=== PATIENT | male | born 1960 | race African-American/Black ===

== ENCOUNTER 2017-01-04 16:39 | Inpatient (IN) | payer OTHER ==
[2017-01-04 17:48] VITALS: BMI 24.3
--- NOTE | 2017-01-04 18:52 | HP ---
CIWA Score - CIWA Score Nausea/Vomitin-Mild Nausea/No Vomiting Muscle Tremors: 4-Moderate,w/Arms Extend Anxiety: 4-Mod. Anxious/Guarded Agitation: 4-Moderately Restless Paroxysmal Sweats: 1-Minimal Palms Moist Orientation: 0-Oriented Tacttile Disturbances: 0-None Auditory Disturbances: 0-None Visual Disturbances: 0-None Headache: 0-None Present CIWA-Ar Total Score: 14 Admission ROS BHS - HPI Chief Complaint: withdrawal sx Allergies/Adverse Reactions: Allergies Allergy/AdvReac Type Severity Reaction Status Date / Time No Known Allergies Allergy Verified 01/04/17 18:59 History of Present Illness: 56 years old male with long history of alcohol cocaine nicotine dependence has chronic lower back pain ambulating with cane and depression is admitted to detox Exam Limitations: No Limitations - Ebola screening Have you traveled outside of the country in the last 21 days: No Have you had contact with anyone from an Ebola affected area: No Have you been sick,other than usual withdrawal symptoms: No Do you have a fever: No - Review of Systems Constitutional: Changes in sleep, Weight Stable EENT: reports: Dental Problems (multiple teeth missing) Respiratory: reports: No Symptoms reported Cardiac: reports: No Symptoms Reported GI: reports: Nausea, Poor Fluid Intake, Abdominal cramping : reports: No Symptoms Reported Musculoskeletal: reports: Muscle Weakness (left knee) Integumentary: reports: No Symptoms Reported Neuro: reports: Tremors Endocrine: reports: No Symptoms Reported Hematology: reports: No Symptoms Reported Psychiatric: reports: Judgement Intact, Orientated x3, Anxious, Depressed Other Systems: Reviewed and Negative Patient History - Patient Medical History Hx Anemia: No Hx Asthma: No Hx Chronic Obstructive Pulmonary Disease (COPD): No Hx Cancer: No Hx Cardiac Disorders: No Hx Congestive Heart Failure: No Hx Hypertension: No Hx Hypercholesterolemia: No Hx Pacemaker: No HX Cerebrovascular Accident: No Hx Seizures: No Hx Dementia: No Hx Diabetes: No Hx Gastrointestinal Disorders: No Hx Liver Disease: No Hx Genitourinary Disorders: No Hx Sexually Transmitted Disorders: No Hx Renal Disease (ESRD): No Hx Thyroid Disease: No Hx Human Immunodeficiency Virus (HIV): No Hx Hepatitis C: No Hx Depression: Yes (NO TXMENT) Hx Suicide Attempt: No Hx Bipolar Disorder: No Hx Schizophrenia: No Other Medical History: chronic lower back pain - Patient Surgical History Past Surgical History: Yes Hx Neurologic Surgery: No Hx Cataract Extraction: No Hx Cardiac Surgery: No Hx Lung Surgery: No Hx Breast Surgery: No Hx Breast Biopsy: No Hx Abdominal Surgery: No Hx Appendectomy: No Hx Cholecystectomy: No Hx Genitourinary Surgery: No Hx Orthopedic Surgery: Yes (ORTHOSCOPIC SURGERY ON LEFT KNEE IN 09/2014) Anesthesia Reaction: No - PPD History Previous Implant?: Yes Documented Results: Negative w/proof Implanted On Prior [facility] Admission?: Yes Date: 07/03/15 Results: 0MM PPD to be Administered?: Yes - Smoking Cessation Smoking history: Current every day smoker Have you smoked in the past 12 months: Yes Aproximately how many cigarettes per day: 15 Cigars Per Day: 0 Hx Chewing Tobacco Use: No Initiated information on smoking cessation: Yes 'Breaking Loose' booklet given: 01/04/17 - Substance & Tx. History Hx Alcohol Use: Yes Hx Substance Use: Yes Substance Use Type: Alcohol, Cocaine Hx Substance Use Treatment: Yes (12/22-12/25/16 [facility] - Substances Abused Alcohol Route: Oral Frequency: Daily Amount used: fifth volka Age of first use: 21 Date of Last Use: 01/04/17 Family Disease History - Family Disease History Family Disease History: Other: Father (ESTRANGED) Admission Physical Exam S - Vital Signs Vital Signs: Vital Signs - 24 hr 01/04/17 17:45 Temperature 96.9 F L Pulse Rate 91 H Respiratory 18 Rate Blood Pressure 118/69 - Physical General Appearance: Yes: Nourished, Appropriately Dressed, Alcohol on Breath, Tremorous, Irritable, Sweating, Anxious HEENTM: Yes: Hearing grossly Normal, Normal ENT Inspection, Normocephalic, Normal Voice Respiratory: Yes: Chest Non-Tender, Lungs Clear, Normal Breath Sounds, No Respiratory Distress, No Accessory Muscle Use Neck: Yes: Supple, Trachea in good position Breast: Yes: Breasts Symetrical Cardiology: Yes: Regular Rhythm, S1, S2, Tachycardia Abdominal: Yes: Non Tender, Soft Genitourinary: Yes: Within Normal Limits Musculoskeletal: Yes: Gait Steady (cane), Back pain, Muscle Pain, Muscle weakness (left knee) Extremities: Yes: Non-Tender, Tremors Neurological: Yes: Fully Oriented, Alert, Motor Strength 5/5, Normal Response, Depressed Affect Integumentary: Yes: Warm Lymphatic: Yes: Within Normal Limits - Diagnostic (1) Alcohol dependence with uncomplicated withdrawal Current Visit: Yes Status: Acute (2) Anxiety and depression Current Visit: Yes Status: Suspected (3) Chronic low back pain Current Visit: Yes Status: Chronic Qualifiers: Back pain laterality: unspecified Sciatica presence: with sciatica Sciatica laterality: sciatica of left side Qualified Code(s): M54.42 - Lumbago with sciatica, left side; G89.29 - Other chronic pain (4) Nicotine dependence Current Visit: Yes Status: Acute Qualifiers: Nicotine product type: cigarettes Substance use status: in withdrawal Qualified Code(s): F17.213 - Nicotine dependence, cigarettes, with withdrawal (5) Cocaine dependence, uncomplicated Current Visit: Yes Status: Chronic Cleared for Admission [facility] - Detox or Rehab [facility] Level of Care: Medically Managed Detox Regimen/Protocol: Librium [facility] Breath Alcohol Content Breath Alcohol Content: 0.28 Urine Drug Screen - Results Drug Screen Negative: No Urine Drug Screen Results: TRISTIN-Cocaine
[2017-01-04] MEDS ORDERED: chlordiazePOXIDE HCL 25 MG CAPSULE PO PRN (18:59)
[2017-01-04] MEDS ORDERED: P-EPHED 60MG/TRIPROLIDI 2.5MG TABLET PO PRN (18:59)
[2017-01-04] MEDS ORDERED: MAGNESIUM HYDROX 2400MG/30ML ORAL SUSPENSION 30 ML CUP PO PRN (18:59)
[2017-01-04] MEDS ORDERED: MAGNESIUM CITRATE 300 ML BOTTLE PO PRN (18:59)
[2017-01-04] MEDS ORDERED: LOPERAMIDE HCL 2 MG CAPSULE PO PRN (18:59)
[2017-01-04] MEDS ORDERED: guaiFENesin/D-METHORPHAN HB 10 ML UNIT-DOSE CUPS PO PRN (18:59)
[2017-01-04] MEDS ORDERED: MAG HYDROX/AL HYDROX/SIMETH 30 ML UNIT-DOSE CUP PO PRN (18:59)
[2017-01-04] MEDS ORDERED: NICOTINE POLACRILEX 4 MG GUM BUC PRN (18:59)
[2017-01-04] MEDS ORDERED: IBUPROFEN 400 MG TABLET (FP) PO PRN (18:59)
[2017-01-04] MEDS ORDERED: hydrOXYzine PAMOATE 50 MG CAPSULE (FP) PO PRN (18:59)
[2017-01-04] MEDS ORDERED: ACETAMINOPHEN 325 MG TABLET (FP) PO PRN (18:59)
[2017-01-04] MEDS ORDERED: MENTHOL/PHENOL 1 EACH UD MM PRN (18:59)
[2017-01-04] MEDS ORDERED: chlordiazePOXIDE HCL 25 MG CAPSULE PO ONE (18:59)
[2017-01-04] MEDS: CYCLOBENZAPRINE HCL 10 MG TABLET (FP) PO SCH (22:08)
[2017-01-04] MEDS: THIAMINE HCL 100 MG TABLET (FP) PO SCH (22:08)
[2017-01-04] MEDS: diphenhydrAMINE HCL 50 MG CAPSULE PO PRN (22:10)
[2017-01-04] MEDS: IBUPROFEN 600 MG TABLET (FP) PO PRN (22:11)
[2017-01-04] MEDS: chlordiazePOXIDE HCL 25 MG CAPSULE PO SCH (22:13)
[2017-01-04 23:15] LABS: URINE APPEARANCE CLEAR; URINE BILIRUBIN NEGATIVE (NEGATIVE); URINE BLOOD NEGATIVE (NEGATIVE); URINE COLOR YELLOW; URINE GLUCOSE (UA) NEGATIVE (NEGATIVE); URINE KETONE NEGATIVE (NEGATIVE); URINE LEUK ESTERASE NEGATIVE (NEGATIVE); URINE NITRITE NEGATIVE (NEGATIVE); URINE PROTEIN NEGATIVE (NEGATIVE); URINE UROBILINOGEN NEGATIVE mg/dL (0.2-1.0)
[2017-01-05] MEDS: CYCLOBENZAPRINE HCL 10 MG TABLET (FP) PO SCH (05:32)
[2017-01-05] MEDS: chlordiazePOXIDE HCL 25 MG CAPSULE PO SCH ×4 (05:32→22:27)
--- NOTE | 2017-01-05 08:53 | CONSULT ---
[facility] Psychiatric Consult - Data Date of interview: 01/05/17 Admission source: [facility] Identifying data: This is 56 years opld male with no psychiatric hospitalization histopry intoxicated with: Alcogho, Cocaine and Nicotine Substance Abuse History: - Smoking Cessation. Smoking history: Current every day smoker. Have you smoked in the past 12 months: Yes. Aproximately how many cigarettes per day: 15. Cigars Per Day: 0. Hx Chewing Tobacco Use: No. Initiated information on smoking cessation: Yes. 'Breaking Loose' booklet given : 01/04/17. - Substance & Tx. History. Hx Alcohol Use: Yes. Hx Substance Use : Yes. Substance Use Type: Alcohol, Cocaine. Hx Substance Use Treatment: Yes ( 12/22-12/25/16 [facility]). - Substances Abused. Alcohol. Route: Oral. Frequency: Daily. Amount used: fifth volka. Age of first use: 21. Date of Last Use: 01/04/17 Medical History: LBP, DJD Psychiatric History: Patient reports history of Impulse control disorder, anxiety, , reports taking prior tadmission: Flexeril 10mg po tid Physical/Sexual Abuse/Trauma History: Denies Additional Comment: Flexeril 10mg po tid Mental Status Exam - Mental Status Exam Alert and Oriented to: Person Cognitive Function: Fair Patient Appearance: Unkempt Mood: Sad, Euthymic Patient Behavior: Cooperative Speech Pattern: Delayed Voice Loudness: Mildly Loud Thought Process: Goal Oriented Thought Disorder: Being Controlled Hallucinations: Denies Suicidal Ideation: Denies Homicidal Ideation: Denies Insight/Judgement: Fair Sleep: Difficulty falling asleep Appetite: Weight gain Muscle strength/Tone: Normal Gait/Station: Shuffling Additional Comments: Flexeril 10mg po tid Psychiatric Findings - Problem List (Benge 1, 2,3) (1) Alcohol dependence with uncomplicated withdrawal Current Visit: Yes Status: Acute (2) Nicotine dependence Current Visit: Yes Status: Acute Qualifiers: Nicotine product type: cigarettes Substance use status: in withdrawal Qualified Code(s): F17.213 - Nicotine dependence, cigarettes, with withdrawal (3) Cocaine dependence, uncomplicated Current Visit: Yes Status: Chronic (4) Anxiety and depression Current Visit: Yes Status: Suspected (5) Cannabis dependence Current Visit: No Status: Acute (6) Cocaine dependence Current Visit: No Status: Acute Qualifiers: Substance use status: uncomplicated Qualified Code(s): F14.20 - Cocaine dependence, uncomplicated (7) Impulse control disorder Current Visit: No Status: Acute (8) Antisocial personality disorder Current Visit: No Status: Suspected (9) Substance induced mood disorder Current Visit: No Status: Suspected - Initial Treatment Plan Initial Treatment Plan: Flexeril 10mg po tid
--- NOTE | 2017-01-05 09:38 | PN ---
S CIWA - CIWA Score Nausea/Vomitin-No Nausea/No Vomiting Muscle Tremors: 4-Moderate,w/Arms Extend Anxiety: 3 Agitation: 3 Paroxysmal Sweats: 3 Orientation: 0-Oriented Tacttile Disturbances: 0-None Auditory Disturbances: 0-None Visual Disturbances: 0-None Headache: 0-None Present CIWA-Ar Total Score: 13 S Progress Note (SOAP) Subjective: chronic back pain sweats tired interrupted sleep Objective: 01/05/17 09:37 Vital Signs Temperature 96.7 F L 01/05/17 05:56 Pulse Rate 72 01/05/17 05:56 Respiratory Rate 16 01/05/17 05:56 Blood Pressure 115/66 01/05/17 05:56 O2 Sat by Pulse Oximetry (%) Laboratory Tests 01/04/17 22:00 Urine Color Yellow Urine Appearance Clear Urine pH 6.0 Ur Specific [place] 1.020 Urine Protein Negative Urine Glucose (UA) Negative Urine Ketones Negative Urine Blood Negative Urine Nitrite Negative Urine Bilirubin Negative Urine Urobilinogen Negative Ur Leukocyte Esterase Negative rest of labs pending awake/alert ambulating no acute distress Assessment: 01/05/17 09:37 withdrawal sx Plan: continue detox increase fluids labs pending lidocaine patch
[2017-01-05 09:50] LABS: MCH 28.8 pg (25.7-33.7); MCHC 33.2 g/dl (32.0-35.9); MEAN CELL VOLUME 86.8 fl (80-96); MEAN PLT VOLUME 7.1 fl (7.5-11.1); PLATELET COUNT 328 K/MM3 (134-434); RDW 13.8 % (11.9-15.9); WHITE BLOOD COUNT 6.1 K/mm3 (4.0-10.0)
[2017-01-05] MEDS: LIDOCAINE 5% TOPICAL PATCH TP SCH (10:11)
[2017-01-05] MEDS: PRENATAL VITAMINS W/ FOLIC ACID TABLET (FP) PO SCH (10:12)
[2017-01-05] MEDS: NICOTINE 21 MG/24 HOURS TOPICAL PATCH TD SCH (10:12)
[2017-01-05 10:44] LABS: ALBUMIN 3.3 g/dl (3.4-5.0); ALK PHOS 108 U/L (45-117); ANION GAP 7 (8-16); BILIRUBIN,TOTAL 0.3 mg/dL (0.2-1.0); CALCIUM 8.8 mg/dL (8.5-10.1); CO2 30 mmol/L (21-32); CREATININE 1.1 mg/dL (0.7-1.3); GLUCOSE,RANDOM 134 mg/dL (74-106); SGOT/AST 8 U/L (15-37); SGPT/ALT 17 U/L (12-78); TOT PROT 6.8 g/dl (6.4-8.2)
--- NOTE | 2017-01-05 10:46 | EKG ---
Test Reason : Blood Pressure : / mmHG Vent. Rate : 097 BPM Atrial Rate : 097 BPM P-R Int : 150 ms QRS Dur : 084 ms QT Int : 318 ms P-R-T Axes : 074 036 062 degrees QTc Int : 403 ms NORMAL SINUS RHYTHM NONSPECIFIC T WAVE ABNORMALITY ABNORMAL ECG NO PREVIOUS ECGS AVAILABLE Confirmed by ROYAL SIMON MD ([id number]) on 01/05/2017 10:46:20 AM Referred By: Confirmed By:ROYAL SIMON MD
[2017-01-05] MEDS: CYCLOBENZAPRINE HCL 10 MG TABLET (FP) PO PRN (22:26)
[2017-01-05] MEDS: THIAMINE HCL 100 MG TABLET (FP) PO SCH (22:26)
[2017-01-05] MEDS: diphenhydrAMINE HCL 50 MG CAPSULE PO PRN (22:27)
[2017-01-05] MEDS: IBUPROFEN 600 MG TABLET (FP) PO PRN (22:27)
[2017-01-05] MEDS: LIDOCAINE PATCH REMOVAL MC SCH (22:29)
[2017-01-06] MEDS: chlordiazePOXIDE HCL 25 MG CAPSULE PO SCH ×3 (05:56→17:23)
[2017-01-06] MEDS: PRENATAL VITAMINS W/ FOLIC ACID TABLET (FP) PO SCH (10:15)
[2017-01-06] MEDS: NICOTINE 21 MG/24 HOURS TOPICAL PATCH TD SCH (10:15)
[2017-01-06] MEDS: LIDOCAINE 5% TOPICAL PATCH TP SCH (10:16)
--- NOTE | 2017-01-06 11:17 | PN ---
BHS COWS - Scale Resting Pulse: 0= [place] 80 or Below Sweatin= Chills/Flushing Restless Observation: 1= Difficult to Sit Still Pupil Size: 0= Normal to Room Light Bone or Joint Aches: 2= Severe Diffuse Aches Runny Nose/ Eye Tearin= Runny Nose/Eyes GI Upset > 30mins: 1= Stomach Cramp Tremor Observation of Outstretched Hands: 2= Slight Tremor Visible Yawning Observation: 2= >3x During Session Anxiety or Irritability: 1=Feels Anxious/Irritable Goose Flesh Skin: 0=Smooth Skin COWS Score: 12 S Progress Note (SOAP) Subjective: sweats shakes interrupted sleep tired Objective: 01/06/17 11:16 Vital Signs Temperature 96.8 F L 01/06/17 10:11 Pulse Rate 78 01/06/17 10:11 Respiratory Rate 18 01/06/17 10:11 Blood Pressure 130/89 01/06/17 10:11 O2 Sat by Pulse Oximetry (%) Laboratory Tests 01/04/17 01/05/17 01/05/17 22:00 07:00 07:00 WBC 6.1 RBC 4.46 Hgb 12.9 Hct 38.7 MCV 86.8 MCH 28.8 MCHC 33.2 RDW 13.8 Plt Count 328 MPV 7.1 L D Sodium 140 Potassium 3.9 Chloride 103 Carbon Dioxide 30 Anion Gap 7 L BUN 21 H D Creatinine 1.1 Creat Clearance w eGFR > 60 Random Glucose 134 H Calcium 8.8 Total Bilirubin 0.3 D AST 8 L D ALT 17 D Alkaline Phosphatase 108 Total Protein 6.8 Albumin 3.3 L Urine Color Yellow Urine Appearance Clear Urine pH 6.0 Ur Specific [place] 1.020 Urine Protein Negative Urine Glucose (UA) Negative Urine Ketones Negative Urine Blood Negative Urine Nitrite Negative Urine Bilirubin Negative Urine Urobilinogen Negative Ur Leukocyte Esterase Negative RPR Titer 01/05/17 07:00 WBC RBC Hgb Hct MCV MCH MCHC RDW Plt Count MPV Sodium Potassium Chloride Carbon Dioxide Anion Gap BUN Creatinine Creat Clearance w eGFR Random Glucose Calcium Total Bilirubin AST ALT Alkaline Phosphatase Total Protein Albumin Urine Color Urine Appearance Urine pH Ur Specific [place] Urine Protein Urine Glucose (UA) Urine Ketones Urine Blood Urine Nitrite Urine Bilirubin Urine Urobilinogen Ur Leukocyte Esterase RPR Titer Nonreactive awake/alert ambulating no acute distress Assessment: 01/06/17 11:16 withdrawal sx Plan: continue detox increase fluids ensure plus 120ml po bid
--- NOTE | 2017-01-06 11:45 | PN ---
BHS Progress Note (SOAP) Subjective: nausea, sweats, interrupted sleep, anxiety, tremors Objective: 01/06/17 11:45 Vital Signs - 24 hr 01/05/17 01/05/17 01/06/17 17:43 21:59 00:30 Temperature 98.1 F 97.5 F L Pulse Rate 71 86 Respiratory 18 18 18 Rate Blood Pressure 104/62 126/77 01/06/17 01/06/17 01/06/17 03:30 06:45 10:11 Temperature 97.5 F L 96.8 F L Pulse Rate 86 78 Respiratory 18 18 18 Rate Blood Pressure 132/74 130/89 Laboratory Tests 01/04/17 01/05/17 01/05/17 22:00 07:00 07:00 WBC 6.1 RBC 4.46 Hgb 12.9 Hct 38.7 MCV 86.8 MCH 28.8 MCHC 33.2 RDW 13.8 Plt Count 328 MPV 7.1 L D Sodium 140 Potassium 3.9 Chloride 103 Carbon Dioxide 30 Anion Gap 7 L BUN 21 H D Creatinine 1.1 Creat Clearance w eGFR > 60 Random Glucose 134 H Calcium 8.8 Total Bilirubin 0.3 D AST 8 L D ALT 17 D Alkaline Phosphatase 108 Total Protein 6.8 Albumin 3.3 L Urine Color Yellow Urine Appearance Clear Urine pH 6.0 Ur Specific [place] 1.020 Urine Protein Negative Urine Glucose (UA) Negative Urine Ketones Negative Urine Blood Negative Urine Nitrite Negative Urine Bilirubin Negative Urine Urobilinogen Negative Ur Leukocyte Esterase Negative RPR Titer 01/05/17 07:00 WBC RBC Hgb Hct MCV MCH MCHC RDW Plt Count MPV Sodium Potassium Chloride Carbon Dioxide Anion Gap BUN Creatinine Creat Clearance w eGFR Random Glucose Calcium Total Bilirubin AST ALT Alkaline Phosphatase Total Protein Albumin Urine Color Urine Appearance Urine pH Ur Specific [place] Urine Protein Urine Glucose (UA) Urine Ketones Urine Blood Urine Nitrite Urine Bilirubin Urine Urobilinogen Ur Leukocyte Esterase RPR Titer Nonreactive Assessment: 01/06/17 11:45 withdrawal sx Plan: cont detox
[2017-01-06] MEDS: THIAMINE HCL 100 MG TABLET (FP) PO SCH (22:34)
[2017-01-06] MEDS: LIDOCAINE PATCH REMOVAL MC SCH (22:35)
[2017-01-06] MEDS: chlordiazePOXIDE 5 MG CAPSULE PO SCH (22:35)
[2017-01-06] MEDS: diphenhydrAMINE HCL 50 MG CAPSULE PO PRN (22:36)
[2017-01-06] MEDS: IBUPROFEN 600 MG TABLET (FP) PO PRN (22:42)
[2017-01-06] MEDS: CYCLOBENZAPRINE HCL 10 MG TABLET (FP) PO PRN (22:42)
[2017-01-07] MEDS: chlordiazePOXIDE 5 MG CAPSULE PO SCH (06:13)
--- NOTE | 2017-01-07 08:48 | DS ---
[facility] Detox Discharge Summary Admission Date: 01/04/17 Discharge Date: 01/07/17 - History Present History: Alcohol Dependence, Cocaine Dependence Additional Comments: withdrashish mathisx on admission Pertinent Past History: nicotine dependence, chronic low back pain, anxiety, insomnia, depression, DJD, arthritis - Physical Exam Results Vital Signs: Vital Signs Temperature 96.8 F L 01/07/17 06:49 Pulse Rate 72 01/07/17 06:49 Respiratory Rate 18 01/07/17 06:49 Blood Pressure 125/76 01/07/17 06:49 O2 Sat by Pulse Oximetry (%) Laboratory Tests 01/04/17 01/05/17 01/05/17 22:00 07:00 07:00 WBC 6.1 RBC 4.46 Hgb 12.9 Hct 38.7 MCV 86.8 MCH 28.8 MCHC 33.2 RDW 13.8 Plt Count 328 MPV 7.1 L D Sodium 140 Potassium 3.9 Chloride 103 Carbon Dioxide 30 Anion Gap 7 L BUN 21 H D Creatinine 1.1 Creat Clearance w eGFR > 60 Random Glucose 134 H Calcium 8.8 Total Bilirubin 0.3 D AST 8 L D ALT 17 D Alkaline Phosphatase 108 Total Protein 6.8 Albumin 3.3 L Urine Color Yellow Urine Appearance Clear Urine pH 6.0 Ur Specific [place] 1.020 Urine Protein Negative Urine Glucose (UA) Negative Urine Ketones Negative Urine Blood Negative Urine Nitrite Negative Urine Bilirubin Negative Urine Urobilinogen Negative Ur Leukocyte Esterase Negative RPR Titer 01/05/17 07:00 WBC RBC Hgb Hct MCV MCH MCHC RDW Plt Count MPV Sodium Potassium Chloride Carbon Dioxide Anion Gap BUN Creatinine Creat Clearance w eGFR Random Glucose Calcium Total Bilirubin AST ALT Alkaline Phosphatase Total Protein Albumin Urine Color Urine Appearance Urine pH Ur Specific [place] Urine Protein Urine Glucose (UA) Urine Ketones Urine Blood Urine Nitrite Urine Bilirubin Urine Urobilinogen Ur Leukocyte Esterase RPR Titer Nonreactive Pertinent Admission Physical Exam Findings: withdrawal - Treatment Hospital Course: Detox Protocol Followed, Detoxed Safely, Responded well, Discharged Condition Good, Rehab Referral Accepted Patient has Accepted a Rehab Referral to: Yes - Medication Discharge Medications: Ambulatory Orders Cyclobenzaprine HCl [Flexeril -] 10 mg PO TID PRN 06/09/11 Ibuprofen [Motrin -] 800 mg PO TID 06/30/15 - Diagnosis (1) Alcohol dependence with uncomplicated withdrawal Current Visit: Yes Status: Chronic (2) Chronic low back pain Current Visit: Yes Status: Chronic Qualifiers: Back pain laterality: unspecified Sciatica presence: with sciatica Sciatica laterality: sciatica of left side Qualified Code(s): M54.42 - Lumbago with sciatica, left side; G89.29 - Other chronic pain (3) Cocaine dependence, uncomplicated Current Visit: Yes Status: Chronic (4) Nicotine dependence Current Visit: Yes Status: Chronic Qualifiers: Nicotine product type: cigarettes Substance use status: uncomplicated Qualified Code(s): F17.210 - Nicotine dependence, cigarettes, uncomplicated (5) Anxiety and depression Current Visit: Yes Status: Suspected (6) Cannabis dependence Current Visit: No Status: Acute (7) Arthritis Current Visit: No Status: Chronic (8) DJD (degenerative joint disease) Current Visit: No Status: Chronic Qualifiers: Osteoarthritis location: spine - AMA Did Patient Leave Against Medical Advice: No
[2017-01-07 10:04] VITALS: BP 130/65; PULSE 79; TEMP 97.7
[2017-01-07] MEDS: PRENATAL VITAMINS W/ FOLIC ACID TABLET (FP) PO SCH (10:04)
[2017-01-07] MEDS: NICOTINE 21 MG/24 HOURS TOPICAL PATCH TD SCH (10:04)
[2017-01-07] MEDS: LIDOCAINE 5% TOPICAL PATCH TP SCH (10:04)
[2017-01-07] MEDS ORDERED: chlordiazePOXIDE HCL 10 MG CAPSULE PO SCH (23:00)
== END 2017-01-07 10:27 | disposition home or self-care (01) | DRG 774 ==
LOC: YASAS 16:39 → Y6N 19:48
PROVIDERS: ADMIT Internal Medicine Addiction Medicine; ATTEND Internal Medicine Addiction Medicine
PROC: HZ2ZZZZ Detoxification Services for Substance Abuse Treatment (ICD-10-PCS; principal; 2017-01-04)
DX: F10.230 Alcohol dependence with withdrawal, uncomplicated (principal); F14.20 Cocaine dependence, uncomplicated; F12.20 Cannabis dependence, uncomplicated; F17.210 Nicotine dependence, cigarettes, uncomplicated; F19.24 Other psychoactive substance dependence with psychoactive substance-induced mood disorder; F41.8 Other specified anxiety disorders; F63.9 Impulse disorder, unspecified; F60.2 Antisocial personality disorder; M54.5 Low back pain; G89.29 Other chronic pain; M19.90 Unspecified osteoarthritis, unspecified site; R00.0 Tachycardia, unspecified
CPT/HCPCS: 36415; 80053; 81003; 85027; 86593; 93005; 93010

== ENCOUNTER 2017-12-29 09:05 | Inpatient (IN) | payer OTHER ==
[2017-12-29 10:13] VITALS: BMI 22.7
--- NOTE | 2017-12-29 14:31 | HP ---
CIWA Score - CIWA Score Nausea/Vomitin Muscle Tremors: 3 Anxiety: 3 Agitation: 3 Paroxysmal Sweats: 2 Orientation: 0-Oriented Tacttile Disturbances: 1-Very Mild Itch/Numbness Auditory Disturbances: 1-Very Mild Visual Disturbances: 0-None Headache: 2-Mild CIWA-Ar Total Score: 18 Admission ROS BHS - HPI Chief Complaint: i need help to stop drinking alcohol,cocaine and marijuana Allergies/Adverse Reactions: Allergies Allergy/AdvReac Type Severity Reaction Status Date / Time No Known Allergies Allergy Verified 12/29/17 10:03 History of Present Illness: this 57 years black male with alcohol,cocaine and marijuana dependence,seeking detox,withdrawal symptom,last treatment [facility] 01/04/17 to copd ptsd herniated disc lumbar area 2009 wearing back brace since 2016 s/p arthroscopy of left knee on 10/04/14 at [facility] wearing knee brace for torn meniscus both knees nicotine dependence multiple admissions in detox but keep relapsing also ambulation with cane weight loss longest period of sobriety 7 years Exam Limitations: No Limitations - Ebola screening Have you traveled outside of the country in the last 21 days: No (N) Have you had contact with anyone from an Ebola affected area: No Have you been sick,other than usual withdrawal symptoms: No Do you have a fever: No - Review of Systems Constitutional: Chills, Loss of Appetite, Malaise, Night Sweats, Changes in sleep, Weakness, Unintentional Wgt. Loss EENT: reports: Tearing, Nose Congestion Respiratory: reports: Other (copd) Cardiac: reports: No Symptoms Reported GI: reports: Diarrhea, Poor Appetite, Vomiting, Abdominal cramping : reports: No Symptoms Reported Musculoskeletal: reports: Back Pain, Joint Pain, Muscle Pain, Joint Stiffness, Other (menis cus both knees s/p arthrosopy left wearing knee brace left cane walking) Integumentary: reports: Dryness Neuro: reports: Headache, Tremors Endocrine: reports: No Symptoms Reported Hematology: reports: No Symptoms Reported Psychiatric: reports: No Sypmtoms Reported, Judgement Intact, Mood/Affect Appropiate, Orientated x3, Anxious (ptsd,insomnia) Patient History - Patient Medical History Hx Anemia: No Hx Asthma: No Hx Chronic Obstructive Pulmonary Disease (COPD): Yes (on albuterol inhaler) Hx Cancer: No Hx Cardiac Disorders: No Hx Congestive Heart Failure: No Hx Hypertension: No Hx Hypercholesterolemia: No Hx Pacemaker: No HX Cerebrovascular Accident: No Hx Seizures: Yes (last 2014) Hx Dementia: No Hx Diabetes: No Hx Gastrointestinal Disorders: No Hx Liver Disease: No Hx Genitourinary Disorders: No Hx Sexually Transmitted Disorders: No Hx Renal Disease (ESRD): No Hx Thyroid Disease: No Hx Human Immunodeficiency Virus (HIV): No (last 2014 negative) Hx Hepatitis C: No Hx Depression: Yes (NO TXMENT) Hx Suicide Attempt: No Hx Bipolar Disorder: No Hx Schizophrenia: No Other Medical History: ptsd, - Patient Surgical History Past Surgical History: Yes Hx Neurologic Surgery: No Hx Cataract Extraction: No Hx Cardiac Surgery: No Hx Lung Surgery: No Hx Breast Surgery: No Hx Breast Biopsy: No Hx Abdominal Surgery: No Hx Appendectomy: No Hx Cholecystectomy: No Hx Genitourinary Surgery: No Hx Section: No Hx Orthopedic Surgery: Yes (ORTHOSCOPIC SURGERY ON LEFT KNEE IN 09/2014) Anesthesia Reaction: No - PPD History Previous Implant?: Yes Documented Results: Negative w/proof Implanted On Prior R Admission?: Yes Date: 01/06/17 Results: NEGATIVE 0 mm - Smoking Cessation Smoking history: Current every day smoker Have you smoked in the past 12 months: Yes Aproximately how many cigarettes per day: 10 Cigars Per Day: 0 Hx Chewing Tobacco Use: No Initiated information on smoking cessation: Yes 'Breaking Loose' booklet given: 12/29/17 - Substance & Tx. History Hx Alcohol Use: Yes Hx Substance Use: Yes Substance Use Type: Alcohol, Cocaine, Marijuana Hx Substance Use Treatment: Yes - Substances Abused Alcohol Route: Oral Frequency: Daily Amount used: 4 40 OUNCES OF BEER, 2 1/2 PINTS OF RUM Age of first use: 23 Date of Last Use: 12/29/17 Crack Route: Smoking Frequency: Daily Amount used: $100 Age of first use: 27 Date of Last Use: 12/29/17 Marijuana/Hashish Route: Smoking Frequency: 3-6 times per week Amount used: $20 Age of first use: 16 Date of Last Use: 12/27/17 Family Disease History - Family Disease History Family Disease History: Other: Father (ESTRANGED) Admission Physical Exam BHS - Vital Signs Vital Signs: Vital Signs - 24 hr 12/29/17 10:11 Temperature 98.3 F Pulse Rate 89 Respiratory 18 Rate Blood Pressure 133/72 - Physical General Appearance: Yes: Moderate Distress, Tremorous, Irritable, Sweating, Anxious HEENTM: Yes: Normal ENT Inspection, SHARDA, Pharynx Normal Respiratory: Yes: Lungs Clear, Normal Breath Sounds, No Respiratory Distress, Other (copd) Neck: Yes: Supple, Trachea in good position, Thyroid tenderness Breast: Yes: Within Normal Limits Cardiology: Yes: Within Normal Limits, Regular Rhythm, Regular Rate, S1, S2 Abdominal: Yes: Within Normal Limits, Normal Bowel Sounds, Non Tender, Soft Genitourinary: Yes: Within Normal Limits Back: Yes: Muscle Spasm, Other (herniated disc of back) Musculoskeletal: Yes: Back pain, Joint Stiffness, Muscle Pain Extremities: Yes: Normal Range of Motion, Tremors, Other (s/p arthrosopy left knee for meniscus both knees wearing kne brace left) Neurological: Yes: diamond cutter II-XII NML intact, Fully Oriented, Alert, Motor Strength 5/5 Integumentary: Yes: Dry Lymphatic: Yes: Within Normal Limits - Diagnostic (1) Cannabis dependence Current Visit: No Status: Acute (2) Alcohol dependence with uncomplicated withdrawal Current Visit: Yes Status: Chronic (3) Cocaine dependence, uncomplicated Current Visit: Yes Status: Chronic (4) DJD (degenerative joint disease) Current Visit: No Status: Chronic Qualifiers: Osteoarthritis location: spine (5) Nicotine dependence Current Visit: Yes Status: Chronic Qualifiers: Nicotine product type: cigarettes Substance use status: uncomplicated Qualified Code(s): F17.210 - Nicotine dependence, cigarettes, uncomplicated (6) Anxiety and depression Current Visit: No Status: Suspected (7) PCP (phencyclidine) abuse Current Visit: Yes Status: Chronic (8) Use of cane as ambulatory aid Current Visit: Yes Status: Acute Cleared for Admission [facility] - Detox or Rehab [facility] Level of Care: Medically Managed Detox Regimen/Protocol: Valium [facility] Breath Alcohol Content Breath Alcohol Content: 0.023 Urine Drug Screen - Results Drug Screen Negative: No Urine Drug Screen Results: TRISTIN-Cocaine, PCP-Phencyclidine, TCA-Tricyclic Antidepress
[2017-12-29] MEDS ORDERED: LOPERAMIDE HCL 2 MG CAPSULE PO PRN (15:06)
[2017-12-29] MEDS ORDERED: MENTHOL/PHENOL 1 EACH UD MM PRN (15:06)
[2017-12-29] MEDS ORDERED: MAGNESIUM CITRATE 300 ML BOTTLE PO PRN (15:06)
[2017-12-29] MEDS ORDERED: IBUPROFEN 400 MG TABLET (FP) PO PRN (15:06)
[2017-12-29] MEDS ORDERED: diazePAM 5 MG TABLET PO PRN (15:06)
[2017-12-29] MEDS ORDERED: ACETAMINOPHEN 325 MG TABLET (FP) PO PRN (15:06)
[2017-12-29] MEDS ORDERED: NICOTINE POLACRILEX 2 MG GUM BUC PRN (15:06)
[2017-12-29] MEDS ORDERED: MAGNESIUM HYDROX 2400MG/30ML ORAL SUSPENSION 30 ML CUP PO PRN (15:06)
[2017-12-29] MEDS ORDERED: MAG HYDROX/AL HYDROX/SIMETH 30 ML UNIT-DOSE CUP PO PRN (15:06)
[2017-12-29] MEDS ORDERED: P-EPHED 60MG/TRIPROLIDI 2.5MG TABLET PO PRN (15:06)
[2017-12-29] MEDS ORDERED: guaiFENesin/D-METHORPHAN HB 10 ML UNIT-DOSE CUPS PO PRN (15:06)
[2017-12-29] MEDS ORDERED: diazePAM 5 MG TABLET PO ONE (15:30)
[2017-12-29] MEDS: NICOTINE 21 MG/24 HOURS TOPICAL PATCH TD SCH (15:57)
[2017-12-29] MEDS: ALBUTEROL SO4 8 GM HFA INHALER IH PRN (21:10)
[2017-12-29] MEDS: diazePAM 5 MG TABLET PO SCH (22:28)
[2017-12-29] MEDS: THIAMINE HCL 100 MG TABLET (FP) PO SCH (22:28)
[2017-12-29] MEDS: IBUPROFEN 400 MG TABLET (FP) PO PRN (23:08)
[2017-12-29] MEDS: CYCLOBENZAPRINE HCL 10 MG TABLET (FP) PO PRN (23:10)
[2017-12-30 02:12] LABS: URINE APPEARANCE TURBID; URINE BILIRUBIN NEGATIVE (<2.0 mg/dL); URINE COLOR AMBER; URINE GLUCOSE (UA) NEGATIVE (NEGATIVE); URINE KETONE NEGATIVE (NEGATIVE); URINE LEUK ESTERASE NEGATIVE (NEGATIVE); URINE NITRITE NEGATIVE (NEGATIVE); URINE UROBILINOGEN NEGATIVE mg/dL (0.2-1.0)
[2017-12-30 02:31] LABS: URINE PROTEIN 1+ (NEGATIVE)
[2017-12-30 02:35] LABS: EPI CELLS RARE /HPF (FEW); URINE BACTERIA RARE /hpf (NONE SEEN); URINE HYALINE CAST 3 /lpf; URINE MUCUS MODERATE
[2017-12-30] MEDS: diazePAM 5 MG TABLET PO SCH ×3 (05:34→22:16)
[2017-12-30] MEDS: ALBUTEROL SO4 2.5/IPRATROPIUM 0.5 INH SOL 3 ML VIAL.NEB. NEB PRN ×2 (07:00→22:57)
--- NOTE | 2017-12-30 10:28 | EKG ---
Test Reason : Blood Pressure : / mmHG Vent. Rate : 082 BPM Atrial Rate : 082 BPM P-R Int : 158 ms QRS Dur : 080 ms QT Int : 366 ms P-R-T Axes : 080 037 046 degrees QTc Int : 427 ms SINUS RHYTHM WITH OCCASIONAL PREMATURE VENTRICULAR COMPLEXES NONSPECIFIC T WAVE ABNORMALITY ABNORMAL ECG WHEN COMPARED WITH ECG OF 04-JAN-2017 19:28, PREMATURE VENTRICULAR COMPLEXES ARE NOW PRESENT NON-SPECIFIC CHANGE IN ST SEGMENT IN ANTERIOR LEADS Confirmed by ROYAL SIMON MD ([id number]) on 12/30/2017 10:28:27 AM Referred By: Confirmed By:ROYAL SIMON MD
[2017-12-30 11:03] LABS: HEMATOCRIT 39.7 % (35.4-49); MCH 28.7 pg (25.7-33.7); MCHC 32.8 g/dl (32.0-35.9); MEAN CELL VOLUME 87.5 fl (80-96); MEAN PLT VOLUME 7.9 fl (7.5-11.1); PLATELET COUNT 326 K/MM3 (134-434); RBC 4.53 M/mm3 (4.00-5.60); RDW 14.4 % (11.9-15.9); WHITE BLOOD COUNT 6.9 K/mm3 (4.0-10.0)
[2017-12-30 11:08] LABS: CHLORIDE 106 mmol/L (98-107); SODIUM 142 mmol/L (136-145)
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
[2017-12-30] MEDS: NICOTINE 21 MG/24 HOURS TOPICAL PATCH TD SCH (11:11)
[2017-12-30] MEDS: PRENATAL VITAMINS W/ FOLIC ACID TABLET (FP) PO SCH (11:11)
[2017-12-30] MEDS: LIDOCAINE 5% TOPICAL PATCH TP ONE ×2 (11:13→14:39)
[2017-12-30 11:18] LABS: ALK PHOS 88 U/L (45-117); ANION GAP 9 MMOL/L (8-16); BILIRUBIN,TOTAL 0.6 mg/dL (0.2-1.0); BLOOD UREA NITROGEN 24 mg/dL (7-18); CO2 27 mmol/L (21-32); CREATININE 1.5 mg/dL (0.7-1.3); GLUCOSE,RANDOM 76 mg/dL (74-106); SGOT/AST 36 U/L (15-37); SGPT/ALT 26 U/L (12-78); TOT PROT 7.7 g/dl (6.4-8.2)
[2017-12-30] MEDS ORDERED: hydrOXYzine PAMOATE 50 MG CAPSULE (FP) PO PRN (11:18)
[2017-12-30] MEDS ORDERED: LIDOCAINE 5% TOPICAL PATCH TP ONE (11:22)
--- NOTE | 2017-12-30 11:32 | PN ---
[facility] CIWA - CIWA Score Nausea/Vomitin Muscle Tremors: 2 Anxiety: 1-Mildly Anxious Agitation: 1-Slight > Activity Paroxysmal Sweats: 3 Orientation: 0-Oriented Tacttile Disturbances: 2-Mild Itch/Numbness/Burn Auditory Disturbances: 0-None Visual Disturbances: 0-None Headache: 0-None Present CIWA-Ar Total Score: 11 [facility] Progress Note (SOAP) Subjective: I'm better, sweats, lbp Objective: 12/30/17 11:29 Vital Signs Temperature 97.5 F L 12/30/17 06:00 Pulse Rate 79 12/30/17 06:00 Respiratory Rate 18 12/30/17 06:00 Blood Pressure 136/87 12/30/17 06:00 O2 Sat by Pulse Oximetry (%) Laboratory Tests 12/29/17 12/30/17 12/30/17 11:30 00:45 06:00 WBC 6.9 RBC 4.53 Hgb 13.0 Hct 39.7 MCV 87.5 MCH 28.7 MCHC 32.8 RDW 14.4 Plt Count 326 MPV 7.9 D Sodium Potassium Chloride Carbon Dioxide Anion Gap BUN Creatinine Creat Clearance w eGFR Random Glucose Calcium Total Bilirubin AST ALT Alkaline Phosphatase Total Protein Albumin Urine Color Susana Urine Appearance Turbid Urine pH 5.0 Ur Specific [place] 1.027 Urine Protein 1+ H Urine Glucose (UA) Negative Urine Ketones Negative Urine Blood Negative Urine Nitrite Negative Urine Bilirubin Negative Urine Urobilinogen Negative Ur Leukocyte Esterase Negative Urine WBC (Auto) 5 Urine RBC (Auto) 1 Ur Epithelial Cells Rare Urine Bacteria Rare Hyaline Casts 3 Urine Mucus Moderate HIV 1&2 Antibody Screen Negative HIV P24 Antigen Negative 12/30/17 06:00 WBC RBC Hgb Hct MCV MCH MCHC RDW Plt Count MPV Sodium 142 Potassium 4.0 Chloride 106 Carbon Dioxide 27 Anion Gap 9 BUN 24 H Creatinine 1.5 H Creat Clearance w eGFR 48.41 Random Glucose 76 D Calcium 9.0 Total Bilirubin 0.6 AST 36 D ALT 26 D Alkaline Phosphatase 88 Total Protein 7.7 Albumin 4.0 Urine Color Urine Appearance Urine pH Ur Specific [place] Urine Protein Urine Glucose (UA) Urine Ketones Urine Blood Urine Nitrite Urine Bilirubin Urine Urobilinogen Ur Leukocyte Esterase Urine WBC (Auto) Urine RBC (Auto) Ur Epithelial Cells Urine Bacteria Hyaline Casts Urine Mucus HIV 1&2 Antibody Screen HIV P24 Antigen pt aox3 in nad ambulaing Assessment: 12/30/17 11:30 withdrawal sx' s Plan: cont detox increase fluids lidocaine patch flerxeril motrin
[2017-12-30] MEDS ORDERED: LIDOCAINE PATCH REMOVAL MC SCH (22:00)
[2017-12-30] MEDS: THIAMINE HCL 100 MG TABLET (FP) PO SCH (22:16)
[2017-12-30] MEDS: IBUPROFEN 400 MG TABLET (FP) PO PRN (22:17)
[2017-12-30] MEDS: CYCLOBENZAPRINE HCL 10 MG TABLET (FP) PO PRN (22:17)
[2017-12-30] MEDS: LIDOCAINE PATCH REMOVAL MC SCH ×2 (22:19)
[2017-12-31] MEDS: ALBUTEROL SO4 2.5/IPRATROPIUM 0.5 INH SOL 3 ML VIAL.NEB. NEB PRN (05:14)
[2017-12-31] MEDS: IBUPROFEN 400 MG TABLET (FP) PO PRN ×2 (05:34→22:23)
[2017-12-31] MEDS: CYCLOBENZAPRINE HCL 10 MG TABLET (FP) PO PRN ×2 (05:34→22:21)
[2017-12-31] MEDS: PRENATAL VITAMINS W/ FOLIC ACID TABLET (FP) PO SCH (10:13)
[2017-12-31] MEDS: LIDOCAINE 5% TOPICAL PATCH TP SCH (10:13)
[2017-12-31] MEDS: NICOTINE 21 MG/24 HOURS TOPICAL PATCH TD SCH (10:13)
[2017-12-31] MEDS: diazePAM 5 MG TABLET PO SCH ×2 (10:13→22:22)
[2017-12-31] MEDS: THIAMINE HCL 100 MG TABLET (FP) PO SCH (10:50)
[2017-12-31] MEDS: LIDOCAINE PATCH REMOVAL MC SCH (10:50)
--- NOTE | 2017-12-31 12:38 | PN ---
S CIWA - CIWA Score Nausea/Vomitin-No Nausea/No Vomiting Muscle Tremors: 4-Moderate,w/Arms Extend Anxiety: 2 Agitation: 2 Paroxysmal Sweats: 1-Minimal Palms Moist Orientation: 0-Oriented Tacttile Disturbances: 1-Very Mild Itch/Numbness Auditory Disturbances: 0-None Visual Disturbances: 0-None Headache: 1-Very Mild CIWA-Ar Total Score: 11 S Progress Note (SOAP) Subjective: tremor sweat worry about aftercare arrangement Objective: 12/31/17 12:35 Vital Signs Temperature 98.1 F 12/31/17 09:24 Pulse Rate 93 H 12/31/17 09:24 Respiratory Rate 16 12/31/17 09:24 Blood Pressure 135/68 12/31/17 09:24 O2 Sat by Pulse Oximetry (%) Laboratory Last Values WBC 6.9 K/mm3 (4.0-10.0) 12/30/17 06:00 RBC 4.53 M/mm3 (4.00-5.60) 12/30/17 06:00 Hgb 13.0 GM/dL (11.7-16.9) 12/30/17 06:00 Hct 39.7 % (35.4-49) 12/30/17 06:00 MCV 87.5 fl (80-96) 12/30/17 06:00 MCH 28.7 pg (25.7-33.7) 12/30/17 06:00 MCHC 32.8 g/dl (32.0-35.9) 12/30/17 06:00 RDW 14.4 % (11.9-15.9) 12/30/17 06:00 Plt Count 326 K/MM3 (134-434) 12/30/17 06:00 MPV 7.9 fl (7.5-11.1) D 12/30/17 06:00 Sodium 142 mmol/L (136-145) 12/30/17 06:00 Potassium 4.0 mmol/L (3.5-5.1) 12/30/17 06:00 Chloride 106 mmol/L (98-107) 12/30/17 06:00 Carbon Dioxide 27 mmol/L (21-32) 12/30/17 06:00 Anion Gap 9 MMOL/L (8-16) 12/30/17 06:00 BUN 24 mg/dL (7-18) H 12/30/17 06:00 Creatinine 1.5 mg/dL (0.7-1.3) H 12/30/17 06:00 Creat Clearance w eGFR 48.41 (>60) 12/30/17 06:00 Random Glucose 76 mg/dL (74-106) D 12/30/17 06:00 Calcium 9.0 mg/dL (8.5-10.1) 12/30/17 06:00 Total Bilirubin 0.6 mg/dL (0.2-1.0) 12/30/17 06:00 AST 36 U/L (15-37) D 12/30/17 06:00 ALT 26 U/L (12-78) D 12/30/17 06:00 Alkaline Phosphatase 88 U/L (45-117) 12/30/17 06:00 Total Protein 7.7 g/dl (6.4-8.2) 12/30/17 06:00 Albumin 4.0 g/dl (3.4-5.0) 12/30/17 06:00 Urine Color Susana 12/30/17 00:45 Urine Appearance Turbid 12/30/17 00:45 Urine pH 5.0 (5.0-8.0) 12/30/17 00:45 Ur Specific [place] 1.027 (1.001-1.035) 12/30/17 00:45 Urine Protein 1+ (NEGATIVE) H 12/30/17 00:45 Urine Glucose (UA) Negative (NEGATIVE) 12/30/17 00:45 Urine Ketones Negative (NEGATIVE) 12/30/17 00:45 Urine Blood Negative (NEGATIVE) 12/30/17 00:45 Urine Nitrite Negative (NEGATIVE) 12/30/17 00:45 Urine Bilirubin Negative (<2.0 mg/dL) 12/30/17 00:45 Urine Urobilinogen Negative mg/dL (0.2-1.0) 12/30/17 00:45 Ur Leukocyte Esterase Negative (NEGATIVE) 12/30/17 00:45 Urine WBC (Auto) 5 /hpf (3-5) 12/30/17 00:45 Urine RBC (Auto) 1 /hpf (0-3) 12/30/17 00:45 Ur Epithelial Cells Rare /HPF (FEW) 12/30/17 00:45 Urine Bacteria Rare /hpf (NONE SEEN) 12/30/17 00:45 Hyaline Casts 3 /lpf 12/30/17 00:45 Urine Mucus Moderate 12/30/17 00:45 RPR Titer Nonreactive (NONREACTIVE) 12/30/17 06:00 HIV 1&2 Antibody Screen Negative 12/29/17 11:30 HIV P24 Antigen Negative 12/29/17 11:30 lab noted increase oral fluid personal hygiene 12/31/17 12:39 Assessment: 12/31/17 12:41 alcohol withdrawal sx Plan: continue detox
[2017-12-31] MEDS: MELATONIN 5 MG TABLETS PO PRN (22:22)
[2018-01-01] MEDS: LIDOCAINE PATCH REMOVAL MC SCH ×3 (00:22→22:30)
[2018-01-01] MEDS: ALBUTEROL SO4 2.5/IPRATROPIUM 0.5 INH SOL 3 ML VIAL.NEB. NEB PRN (04:40)
[2018-01-01] MEDS: IBUPROFEN 400 MG TABLET (FP) PO PRN ×2 (06:44→22:33)
[2018-01-01] MEDS: CYCLOBENZAPRINE HCL 10 MG TABLET (FP) PO PRN ×2 (06:44→22:33)
[2018-01-01] MEDS: diazePAM 5 MG TABLET PO SCH ×2 (10:10→22:30)
[2018-01-01] MEDS: NICOTINE 21 MG/24 HOURS TOPICAL PATCH TD SCH (10:10)
[2018-01-01] MEDS: LIDOCAINE 5% TOPICAL PATCH TP SCH (10:10)
[2018-01-01] MEDS: PRENATAL VITAMINS W/ FOLIC ACID TABLET (FP) PO SCH (10:10)
--- NOTE | 2018-01-01 13:27 | PN ---
[facility] Progress Note (SOAP) Subjective: feeling better no tremor less sweat sleep better at night social with peers in day room Objective: 01/01/18 13:26 Vital Signs Temperature 97.2 F L 01/01/18 09:36 Pulse Rate 87 01/01/18 09:36 Respiratory Rate 18 01/01/18 09:36 Blood Pressure 133/74 01/01/18 09:36 O2 Sat by Pulse Oximetry (%) Laboratory Last Values WBC 6.9 K/mm3 (4.0-10.0) 12/30/17 06:00 RBC 4.53 M/mm3 (4.00-5.60) 12/30/17 06:00 Hgb 13.0 GM/dL (11.7-16.9) 12/30/17 06:00 Hct 39.7 % (35.4-49) 12/30/17 06:00 MCV 87.5 fl (80-96) 12/30/17 06:00 MCH 28.7 pg (25.7-33.7) 12/30/17 06:00 MCHC 32.8 g/dl (32.0-35.9) 12/30/17 06:00 RDW 14.4 % (11.9-15.9) 12/30/17 06:00 Plt Count 326 K/MM3 (134-434) 12/30/17 06:00 MPV 7.9 fl (7.5-11.1) D 12/30/17 06:00 Sodium 142 mmol/L (136-145) 12/30/17 06:00 Potassium 4.0 mmol/L (3.5-5.1) 12/30/17 06:00 Chloride 106 mmol/L (98-107) 12/30/17 06:00 Carbon Dioxide 27 mmol/L (21-32) 12/30/17 06:00 Anion Gap 9 MMOL/L (8-16) 12/30/17 06:00 BUN 24 mg/dL (7-18) H 12/30/17 06:00 Creatinine 1.5 mg/dL (0.7-1.3) H 12/30/17 06:00 Creat Clearance w eGFR 48.41 (>60) 12/30/17 06:00 Random Glucose 76 mg/dL (74-106) D 12/30/17 06:00 Calcium 9.0 mg/dL (8.5-10.1) 12/30/17 06:00 Total Bilirubin 0.6 mg/dL (0.2-1.0) 12/30/17 06:00 AST 36 U/L (15-37) D 12/30/17 06:00 ALT 26 U/L (12-78) D 12/30/17 06:00 Alkaline Phosphatase 88 U/L (45-117) 12/30/17 06:00 Total Protein 7.7 g/dl (6.4-8.2) 12/30/17 06:00 Albumin 4.0 g/dl (3.4-5.0) 12/30/17 06:00 Urine Color Susana 12/30/17 00:45 Urine Appearance Turbid 12/30/17 00:45 Urine pH 5.0 (5.0-8.0) 12/30/17 00:45 Ur Specific [place] 1.027 (1.001-1.035) 12/30/17 00:45 Urine Protein 1+ (NEGATIVE) H 12/30/17 00:45 Urine Glucose (UA) Negative (NEGATIVE) 12/30/17 00:45 Urine Ketones Negative (NEGATIVE) 12/30/17 00:45 Urine Blood Negative (NEGATIVE) 12/30/17 00:45 Urine Nitrite Negative (NEGATIVE) 12/30/17 00:45 Urine Bilirubin Negative (<2.0 mg/dL) 12/30/17 00:45 Urine Urobilinogen Negative mg/dL (0.2-1.0) 12/30/17 00:45 Ur Leukocyte Esterase Negative (NEGATIVE) 12/30/17 00:45 Urine WBC (Auto) 5 /hpf (3-5) 12/30/17 00:45 Urine RBC (Auto) 1 /hpf (0-3) 12/30/17 00:45 Ur Epithelial Cells Rare /HPF (FEW) 12/30/17 00:45 Urine Bacteria Rare /hpf (NONE SEEN) 12/30/17 00:45 Hyaline Casts 3 /lpf 12/30/17 00:45 Urine Mucus Moderate 12/30/17 00:45 RPR Titer Nonreactive (NONREACTIVE) 12/30/17 06:00 HIV 1&2 Antibody Screen Negative 12/29/17 11:30 HIV P24 Antigen Negative 12/29/17 11:30 lab noted Assessment: 01/01/18 13:27 mild withdrawal sx Plan: medically supervised detox
[2018-01-01] MEDS: THIAMINE HCL 100 MG TABLET (FP) PO SCH (22:30)
[2018-01-01] MEDS: MELATONIN 5 MG TABLETS PO PRN (22:32)
[2018-01-01] MEDS: ALBUTEROL SO4 8 GM HFA INHALER IH PRN (23:16)
[2018-01-02] MEDS: ALBUTEROL SO4 2.5/IPRATROPIUM 0.5 INH SOL 3 ML VIAL.NEB. NEB PRN (05:40)
[2018-01-02 06:25] VITALS: BP 143/81; PULSE 82; TEMP 97.7
--- NOTE | 2018-01-02 08:26 | DS ---
[facility] Detox Discharge Summary Admission Date: 12/29/17 Discharge Date: 01/02/18 - History Present History: Alcohol Dependence Additional Comments: 57 years old male admitted on 12/29/17 for alcohol withdrawal sx completed alcohol detox regimen tolerated well denies alcohol withdrawal sx ambulating with cane steady gait alert oriented x 3 no acute distress aftercare [facility] with appointment as per counselor arranged - Physical Exam Results Vital Signs: Vital Signs Temperature 97.7 F 01/02/18 06:24 Pulse Rate 82 01/02/18 06:24 Respiratory Rate 18 01/02/18 06:24 Blood Pressure 143/81 01/02/18 06:24 O2 Sat by Pulse Oximetry (%) Pertinent Admission Physical Exam Findings: alcohol withdrawal sx Vital Signs Temperature 97.7 F 01/02/18 06:24 Pulse Rate 82 01/02/18 06:24 Respiratory Rate 18 01/02/18 06:24 Blood Pressure 143/81 01/02/18 06:24 O2 Sat by Pulse Oximetry (%) Laboratory Last Values WBC 6.9 K/mm3 (4.0-10.0) 12/30/17 06:00 RBC 4.53 M/mm3 (4.00-5.60) 12/30/17 06:00 Hgb 13.0 GM/dL (11.7-16.9) 12/30/17 06:00 Hct 39.7 % (35.4-49) 12/30/17 06:00 MCV 87.5 fl (80-96) 12/30/17 06:00 MCH 28.7 pg (25.7-33.7) 12/30/17 06:00 MCHC 32.8 g/dl (32.0-35.9) 12/30/17 06:00 RDW 14.4 % (11.9-15.9) 12/30/17 06:00 Plt Count 326 K/MM3 (134-434) 12/30/17 06:00 MPV 7.9 fl (7.5-11.1) D 12/30/17 06:00 Sodium 142 mmol/L (136-145) 12/30/17 06:00 Potassium 4.0 mmol/L (3.5-5.1) 12/30/17 06:00 Chloride 106 mmol/L (98-107) 12/30/17 06:00 Carbon Dioxide 27 mmol/L (21-32) 12/30/17 06:00 Anion Gap 9 MMOL/L (8-16) 12/30/17 06:00 BUN 24 mg/dL (7-18) H 12/30/17 06:00 Creatinine 1.5 mg/dL (0.7-1.3) H 12/30/17 06:00 Creat Clearance w eGFR 48.41 (>60) 12/30/17 06:00 Random Glucose 76 mg/dL (74-106) D 12/30/17 06:00 Calcium 9.0 mg/dL (8.5-10.1) 12/30/17 06:00 Total Bilirubin 0.6 mg/dL (0.2-1.0) 12/30/17 06:00 AST 36 U/L (15-37) D 12/30/17 06:00 ALT 26 U/L (12-78) D 12/30/17 06:00 Alkaline Phosphatase 88 U/L (45-117) 12/30/17 06:00 Total Protein 7.7 g/dl (6.4-8.2) 12/30/17 06:00 Albumin 4.0 g/dl (3.4-5.0) 12/30/17 06:00 Urine Color Susana 12/30/17 00:45 Urine Appearance Turbid 12/30/17 00:45 Urine pH 5.0 (5.0-8.0) 12/30/17 00:45 Ur Specific [place] 1.027 (1.001-1.035) 12/30/17 00:45 Urine Protein 1+ (NEGATIVE) H 12/30/17 00:45 Urine Glucose (UA) Negative (NEGATIVE) 12/30/17 00:45 Urine Ketones Negative (NEGATIVE) 12/30/17 00:45 Urine Blood Negative (NEGATIVE) 12/30/17 00:45 Urine Nitrite Negative (NEGATIVE) 12/30/17 00:45 Urine Bilirubin Negative (<2.0 mg/dL) 12/30/17 00:45 Urine Urobilinogen Negative mg/dL (0.2-1.0) 12/30/17 00:45 Ur Leukocyte Esterase Negative (NEGATIVE) 12/30/17 00:45 Urine WBC (Auto) 5 /hpf (3-5) 12/30/17 00:45 Urine RBC (Auto) 1 /hpf (0-3) 12/30/17 00:45 Ur Epithelial Cells Rare /HPF (FEW) 12/30/17 00:45 Urine Bacteria Rare /hpf (NONE SEEN) 12/30/17 00:45 Hyaline Casts 3 /lpf 12/30/17 00:45 Urine Mucus Moderate 12/30/17 00:45 RPR Titer Nonreactive (NONREACTIVE) 12/30/17 06:00 HIV 1&2 Antibody Screen Negative 12/29/17 11:30 HIV P24 Antigen Negative 12/29/17 11:30 lab noted patient acknowledged alcohol related renal complication - Treatment Hospital Course: Detox Protocol Followed, Detoxed Safely, Responded well, Discharged Condition Good, Rehab Referral Accepted [facility] - Medication Discharge Medications: Ambulatory Orders Cyclobenzaprine HCl [Flexeril -] 10 mg PO TID PRN 06/09/11 Ibuprofen [Motrin -] 800 mg PO TID 06/30/15 Albuterol 0.083% Nebulizer Stephanie [Ventolin 0.083% Nebulizer Soln -] 1 neb NEB Q6H 12/29/17 Oxycodone HCl 10 mg PO BID PRN 12/29/17 - Diagnosis (1) Alcohol dependence with uncomplicated withdrawal Status: Acute (2) COPD (chronic obstructive pulmonary disease) Status: Chronic Qualifiers: COPD type: emphysema Emphysema type: unspecified Qualified Code(s): J43.9 - Emphysema, unspecified (3) Renal insufficiency Status: Chronic (4) Use of cane as ambulatory aid Status: Chronic (5) Arthritis Status: Chronic (6) Nicotine dependence Status: Acute Qualifiers: Nicotine product type: cigarettes Substance use status: in withdrawal Qualified Code(s): F17.213 - Nicotine dependence, cigarettes, with withdrawal - AMA Did Patient Leave Against Medical Advice: No
[2018-01-02] MEDS ORDERED: diazePAM 5 MG TABLET PO SCH (10:00)
== END 2018-01-02 08:54 | disposition home or self-care (01) | DRG 774 ==
LOC: YASAS 09:05 → Y6N 15:01
PROC: HZ2ZZZZ Detoxification Services for Substance Abuse Treatment (ICD-10-PCS; principal; 2017-12-29)
DX: F10.230 Alcohol dependence with withdrawal, uncomplicated (principal); F14.20 Cocaine dependence, uncomplicated; F12.20 Cannabis dependence, uncomplicated; F17.210 Nicotine dependence, cigarettes, uncomplicated; F16.10 Hallucinogen abuse, uncomplicated; F19.24 Other psychoactive substance dependence with psychoactive substance-induced mood disorder; F43.10 Post-traumatic stress disorder, unspecified; F41.8 Other specified anxiety disorders; J44.9 Chronic obstructive pulmonary disease, unspecified; M54.5 Low back pain; M47.9 Spondylosis, unspecified; G89.29 Other chronic pain; R26.2 Difficulty in walking, not elsewhere classified; Z99.89 Dependence on other enabling machines and devices; Z68.22 Body mass index [BMI] 22.0-22.9, adult; S89.80XA Other specified injuries of unspecified lower leg, initial encounter; Z86.69 Personal history of other diseases of the nervous system and sense organs; X58.XXXA Exposure to other specified factors, initial encounter; Y93.89 Activity, other specified; Y92.89 Other specified places as the place of occurrence of the external cause; Y99.8 Other external cause status
CPT/HCPCS: 36415; 80053; 81003; 81015; 85027; 86593; 87389; 93005; 93010; 94640; J7620

== ENCOUNTER 2018-09-18 09:08 | Inpatient (IN) | payer OTHER ==
[2018-09-18 10:40] VITALS: BMI 22.2
--- NOTE | 2018-09-18 11:47 | HP ---
CIWA Score Nausea/Vomitin Muscle Tremors: 2 Anxiety: 2 Agitation: 2 Paroxysmal Sweats: 1-Minimal Palms Moist Orientation: 0-Oriented Tacttile Disturbances: 1-Very Mild Itch/Numbness Auditory Disturbances: 1-Very Mild Visual Disturbances: 0-None Headache: 2-Mild CIWA-Ar Total Score: 13 - Admission Criteria OASAS Guidelines: Admission for Medically Managed Detox: Requires at least one of the followin. CIWA greater than 12 2. Seizures within the past 24 hours 3. Delirium tremens within the past 24 hours 4. Hallucinations within the past 24 hours 5. Acute intervention needed for co occurring medical disorder 6. Acute intervention needed for co occurring psychiatric disorder 7. Severe withdrawal that cannot be handled at a lower level of care (continued vomiting, continued diarrhea, abnormal vital signs) requiring intravenous medication and/or fluids 8. Admission ROS S - HPI Chief Complaint: i am here need help to stop drinking alcohol,cocaine,marijuana Allergies/Adverse Reactions: Allergies Allergy/AdvReac Type Severity Reaction Status Date / Time No Known Allergies Allergy Verified 09/18/18 10:54 History of Present Illness: this 58 years old male with alcohol,cocaine and marijuana dependence with withdrawal symptom,seeking detox had previous admission in detox,last [facility] 12/29/17 to 01/02/18 history of low back pain lumbar herniated disc with sciatica left weight loss ambulation with cane history of hypercholesterolemia history of copd nicotine dependence 1/2 pack requesting nicotine patch fx of right ankle in 1989 longest sobriety 5 years insomnia seizure in [id number] Exam Limitations: No Limitations - Ebola screening Have you traveled outside of the country in the last 21 days: No (N) Have you had contact with anyone from an Ebola affected area: No Do you have a fever: No - Review of Systems Constitutional: Loss of Appetite, Malaise, Night Sweats, Changes in sleep, Weakness, Unintentional Wgt. Loss EENT: reports: Nose Congestion Respiratory: reports: No Symptoms reported, Other (history of asthma) Cardiac: reports: No Symptoms Reported GI: reports: Nausea, Poor Appetite, Abdominal cramping : reports: No Symptoms Reported Musculoskeletal: reports: Back Pain, Joint Pain, Muscle Pain, Joint Stiffness Integumentary: reports: Dryness Neuro: reports: Headache, Tremors Endocrine: reports: No Symptoms Reported Hematology: reports: No Symptoms Reported Psychiatric: reports: No Sypmtoms Reported, Judgement Intact, Mood/Affect Appropiate, Orientated x3, Anxious, Depressed (ptsd), other (insomnia) Other Systems: Reviewed and Negative (ptsd) Patient History - Patient Medical History Hx Anemia: No Hx Asthma: No Hx Chronic Obstructive Pulmonary Disease (COPD): Yes (on albuterol inhaler) Hx Cancer: No Hx Cardiac Disorders: No Hx Congestive Heart Failure: No Hx Hypertension: No Hx Hypercholesterolemia: No Hx Pacemaker: No HX Cerebrovascular Accident: No Hx Seizures: Yes (last 2014) Hx Dementia: No Hx Diabetes: No Hx Gastrointestinal Disorders: No Hx Liver Disease: No Hx Genitourinary Disorders: No Hx Sexually Transmitted Disorders: No Hx Renal Disease (ESRD): No Hx Thyroid Disease: No Hx Human Immunodeficiency Virus (HIV): No (last 2017 negative) Hx Hepatitis C: No Hx Depression: Yes (NO TXMENT) Hx Suicide Attempt: No Hx Bipolar Disorder: No Hx Schizophrenia: No Other Medical History: anxiety,ptsd,no suicidal,no homicidal - Patient Surgical History Past Surgical History: Yes Hx Neurologic Surgery: No Hx Cataract Extraction: No Hx Cardiac Surgery: No Hx Lung Surgery: No Hx Breast Surgery: No Hx Breast Biopsy: No Hx Abdominal Surgery: No Hx Appendectomy: No Hx Cholecystectomy: No Hx Genitourinary Surgery: No Hx Section: No Hx Orthopedic Surgery: Yes (ARTHROSCOPIC SURGERY ON LEFT KNEE IN 09/2014) Anesthesia Reaction: No - PPD History Previous Implant?: Yes Documented Results: Negative w/o proof Implanted On Prior [facility] Admission?: Yes Date: 01/06/17 Results: NEGATIVE 0 mm PPD to be Administered?: Yes - Smoking Cessation Smoking history: Current every day smoker Have you smoked in the past 12 months: Yes Aproximately how many cigarettes per day: 10 Cigars Per Day: 0 Hx Chewing Tobacco Use: No Initiated information on smoking cessation: Yes 'Breaking Loose' booklet given: 09/18/18 - Substance & Tx. History Hx Alcohol Use: Yes Hx Substance Use: Yes Substance Use Type: Alcohol, Cocaine Hx Substance Use Treatment: Yes ([facility] 12/29/17 to 01/02/18) - Substances abused Alcohol Substance route: Oral Frequency: Daily Amount used: 1-2pints of Rum and Vodka,6-7 of 40 Oz of beer Age of first use: 20 Date of last use: 09/17/18 Marijuana/Hashish Substance route: Smoking Frequency: 1-2 times per week Amount used: 2-3 dime bags Age of first use: 20 Date of last use: 09/17/18 Crack Substance route: Smoking Frequency: Daily Amount used: $200-300 Age of first use: 25 Date of last use: 09/17/18 Cocaine Substance route: Inhalation Frequency: 1-3 times last 30 days Amount used: $25-25 Age of first use: 20 Date of last use: 08/19/18 Family Disease History - Family Disease History Family Disease History: Other: Father (ESTRANGED) Admission Physical Exam [facility] - Vital Signs Vital Signs: Vital Signs - 24 hr 09/18/18 09/18/18 10:18 11:05 Temperature 96.2 F L 96.2 F L Pulse Rate 76 76 Respiratory 19 19 Rate Blood Pressure 101/68 101/68 - Physical General Appearance: Yes: Moderate Distress, Tremorous, Irritable, Sweating, Anxious HEENTM: Yes: Normal ENT Inspection, SHARDA, Pharynx Normal Respiratory: Yes: Lungs Clear, Normal Breath Sounds, No Respiratory Distress Neck: Yes: Within Normal Limits, Supple, Trachea in good position Breast: Yes: Within Normal Limits Cardiology: Yes: Within Normal Limits, Regular Rhythm, Regular Rate, S1, S2 Abdominal: Yes: Within Normal Limits, Normal Bowel Sounds, Non Tender, Flat, Soft Genitourinary: Yes: Within Normal Limits Back: Yes: Within Normal Limits, Normal Inspection, CVA Tenderness Musculoskeletal: Yes: full range of Motion, Back pain, Muscle Pain Extremities: Yes: Normal Range of Motion, Non-Tender, Tremors, Other (deformity left 5th finger) Neurological: Yes: plywood matcher II-XII NML intact, Fully Oriented, Alert, Motor Strength 5/5 Integumentary: Yes: Dry Lymphatic: Yes: Within Normal Limits - Diagnostic (1) Alcohol dependence with uncomplicated withdrawal Current Visit: No Status: Acute (2) Cannabis dependence Current Visit: No Status: Acute (3) Knee injuries Current Visit: No Status: Acute (4) Nicotine dependence Current Visit: No Status: Acute Qualifiers: Nicotine product type: cigarettes Substance use status: in withdrawal Qualified Code(s): F17.213 - Nicotine dependence, cigarettes, with withdrawal (5) COPD (chronic obstructive pulmonary disease) Current Visit: No Status: Chronic Qualifiers: COPD type: emphysema Emphysema type: unspecified Qualified Code(s): J43.9 - Emphysema, unspecified (6) Chronic back pain Current Visit: No Status: Chronic (7) Cocaine dependence, uncomplicated Current Visit: No Status: Chronic (8) DJD (degenerative joint disease) Current Visit: No Status: Chronic Qualifiers: Osteoarthritis location: spine (9) Use of cane as ambulatory aid Current Visit: No Status: Chronic (10) Anxiety and depression Current Visit: No Status: Suspected (11) Sciatica, left side Current Visit: Yes Status: Acute (12) Weight loss Current Visit: Yes Status: Acute Cleared for Admission S - Detox or Rehab S Level of Care: Medically Managed Detox Regimen/Protocol: Valium Breathalyzer - Breathalyzer Breathalyzer: 0 Urine Drug Screen - Test Device Lot number: [id number] Expiration date: 06/01/20 - Control Is test valid?: Yes - Results Drug screen NEGATIVE: No Urine drug screen results: TRISTIN-Cocaine Inpatient Rehab Admission - Rehab Decision to Admit Inpatient rehab admission?: No
[2018-09-18] MEDS ORDERED: BISMUTH SUBSALICYLATE 262 MG/15 ML BTL PO PRN (12:01)
[2018-09-18] MEDS ORDERED: hydrOXYzine PAMOATE 25 MG CAPSULE (FP) PO PRN (12:01)
[2018-09-18] MEDS ORDERED: ACETAMINOPHEN 325 MG TABLET (FP) PO PRN ×2 (12:01)
[2018-09-18] MEDS ORDERED: MENTHOL/PHENOL 1 EACH UD MM PRN (12:01)
[2018-09-18] MEDS ORDERED: MAGNESIUM HYDROX 2400MG/30ML ORAL SUSPENSION 30 ML CUP PO PRN (12:01)
[2018-09-18] MEDS ORDERED: MAG HYDROX/AL HYDROX/SIMETH 30 ML UNIT-DOSE CUP PO PRN (12:01)
[2018-09-18] MEDS ORDERED: MAGNESIUM CITRATE 300 ML BOTTLE PO PRN (12:01)
[2018-09-18] MEDS ORDERED: IBUPROFEN 400 MG TABLET (FP) PO PRN (12:01)
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
[2018-09-18] MEDS: diazePAM 5 MG TABLET PO SCH ×2 (13:34→22:27)
[2018-09-18 14:45] LABS: MCHC 32.4 g/dl (32.0-35.9); MEAN CELL VOLUME 86.4 fl (80-96); MEAN PLT VOLUME 6.8 fl (7.5-11.1); PLATELET COUNT 500 K/MM3 (134-434); RBC 4.29 M/mm3 (4.00-5.60); RDW 14.8 % (11.9-15.9); WHITE BLOOD COUNT 5.4 K/mm3 (4.0-10.0)
[2018-09-18 15:03] LABS: ALBUMIN 3.4 g/dl (3.4-5.0); BILIRUBIN,TOTAL 0.4 mg/dL (0.2-1); CALCIUM 9.3 mg/dL (8.5-10.1); CREATININE 1.2 mg/dL (0.55-1.3); POTASSIUM 4.2 mmol/L (3.5-5.1); TOT PROT 7.4 g/dl (6.4-8.2)
[2018-09-18] MEDS: NICOTINE 21 MG/24 HOURS TOPICAL PATCH TD SCH (17:44)
[2018-09-18] MEDS: ALBUTEROL SO4 2.5/IPRATROPIUM 0.5 INH SOL 3 ML VIAL.NEB. NEB PRN (18:05)
[2018-09-18 18:09] LABS: PH,URINE 5.5 (5.0-8.0); URINE APPEARANCE CLEAR; URINE BILIRUBIN NEGATIVE (NEGATIVE); URINE COLOR YELLOW; URINE GLUCOSE (UA) NEGATIVE (NEGATIVE); URINE KETONE NEGATIVE (NEGATIVE); URINE LEUK ESTERASE NEGATIVE (NEGATIVE); URINE NITRITE NEGATIVE (NEGATIVE); URINE PROTEIN NEGATIVE (NEGATIVE); URINE UROBILINOGEN 0.2 mg/dL (0.2-1.0)
[2018-09-18] MEDS: THIAMINE HCL 100 MG TABLET (FP) PO SCH (22:27)
[2018-09-19] MEDS: diazePAM 5 MG TABLET PO SCH ×3 (06:41→22:22)
--- NOTE | 2018-09-19 09:48 | PN ---
S CIWA - CIWA Score Nausea/Vomitin Muscle Tremors: 2 Anxiety: 2 Agitation: 2 Paroxysmal Sweats: 1-Minimal Palms Moist Orientation: 0-Oriented Tacttile Disturbances: 1-Very Mild Itch/Numbness Auditory Disturbances: 1-Very Mild Visual Disturbances: 0-None Headache: 2-Mild CIWA-Ar Total Score: 13 BHS Progress Note (SOAP) Subjective: alert,irritable,anxious,interrupted sleep,tremor pain in the body Objective: 09/19/18 09:46 Vital Signs Temperature 98.2 F 09/19/18 09:20 Pulse Rate 84 09/19/18 09:20 Respiratory Rate 18 09/19/18 09:20 Blood Pressure 120/64 09/19/18 09:20 O2 Sat by Pulse Oximetry (%) Laboratory Last Values WBC 5.4 K/mm3 (4.0-10.0) 09/18/18 12:10 RBC 4.29 M/mm3 (4.00-5.60) 09/18/18 12:10 Hgb 12.0 GM/dL (11.7-16.9) 09/18/18 12:10 Hct 37.0 % (35.4-49) 09/18/18 12:10 MCV 86.4 fl (80-96) 09/18/18 12:10 MCH 28.0 pg (25.7-33.7) 09/18/18 12:10 MCHC 32.4 g/dl (32.0-35.9) 09/18/18 12:10 RDW 14.8 % (11.9-15.9) 09/18/18 12:10 Plt Count 500 K/MM3 (134-434) H D 09/18/18 12:10 MPV 6.8 fl (7.5-11.1) L D 09/18/18 12:10 Sodium 139 mmol/L (136-145) 09/18/18 12:10 Potassium 4.2 mmol/L (3.5-5.1) 09/18/18 12:10 Chloride 104 mmol/L (98-107) 09/18/18 12:10 Carbon Dioxide 28 mmol/L (21-32) 09/18/18 12:10 Anion Gap 7 MMOL/L (8-16) L 09/18/18 12:10 BUN 28 mg/dL (7-18) H 09/18/18 12:10 Creatinine 1.2 mg/dL (0.55-1.3) 09/18/18 12:10 Est GFR (CKD-EPI)AfAm 77.33 09/18/18 12:10 Est GFR (CKD-EPI)NonAf 66.72 09/18/18 12:10 Random Glucose 101 mg/dL (74-106) 09/18/18 12:10 Calcium 9.3 mg/dL (8.5-10.1) 09/18/18 12:10 Total Bilirubin 0.4 mg/dL (0.2-1) 09/18/18 12:10 AST 12 U/L (15-37) L 09/18/18 12:10 ALT 17 U/L (13-61) 09/18/18 12:10 Alkaline Phosphatase 94 U/L (45-117) 09/18/18 12:10 Total Protein 7.4 g/dl (6.4-8.2) 09/18/18 12:10 Albumin 3.4 g/dl (3.4-5.0) 09/18/18 12:10 Urine Color Yellow 09/18/18 15:28 Urine Appearance Clear 09/18/18 15:28 Urine pH 5.5 (5.0-8.0) 09/18/18 15:28 Ur Specific Baker 1.025 (1.010-1.035) 09/18/18 15:28 Urine Protein Negative (NEGATIVE) 09/18/18 15:28 Urine Glucose (UA) Negative (NEGATIVE) 09/18/18 15:28 Urine Ketones Negative (NEGATIVE) 09/18/18 15:28 Urine Blood Negative (NEGATIVE) 09/18/18 15:28 Urine Nitrite Negative (NEGATIVE) 09/18/18 15:28 Urine Bilirubin Negative (NEGATIVE) 09/18/18 15:28 Urine Urobilinogen 0.2 mg/dL (0.2-1.0) 09/18/18 15:28 Ur Leukocyte Esterase Negative (NEGATIVE) 09/18/18 15:28 RPR Titer Nonreactive (NONREACTIVE) 09/18/18 12:10 Assessment: 09/19/18 09:47 withdrawal symptom Plan: continue detox,encourage oral fluid,water
[2018-09-19] MEDS: PRENATAL VITAMINS W/ FOLIC ACID TABLET (FP) PO SCH (10:51)
[2018-09-19] MEDS: diazePAM 5 MG TABLET PO PRN (10:51)
--- NOTE | 2018-09-19 10:51 | PN ---
[facility] Progress Note Note: patient has chronic back pain,5% lidoderm patch to back daily
[2018-09-19] MEDS: METHOCARBAMOL 500 MG TABLET PO PRN ×2 (10:54→22:20)
[2018-09-19] MEDS: LIDOCAINE 5% TOPICAL PATCH TP SCH (11:04)
[2018-09-19] MEDS: NICOTINE 21 MG/24 HOURS TOPICAL PATCH TD SCH (11:05)
[2018-09-19] MEDS: ALBUTEROL SO4 8 GM HFA INHALER IH PRN (15:40)
[2018-09-19] MEDS: ALBUTEROL SO4 2.5/IPRATROPIUM 0.5 INH SOL 3 ML VIAL.NEB. NEB PRN (15:54)
[2018-09-19] MEDS: LIDOCAINE PATCH REMOVAL MC SCH (22:17)
[2018-09-19] MEDS: MELATONIN 5 MG TABLETS PO PRN (22:20)
[2018-09-19] MEDS: THIAMINE HCL 100 MG TABLET (FP) PO SCH (22:22)
[2018-09-20] MEDS ORDERED: diazePAM 5 MG TABLET PO ONE (06:00)
--- NOTE | 2018-09-20 08:38 | DS ---
[facility] Detox Discharge Summary Admission Date: 09/18/18 Discharge Date: 09/20/18 - History Present History: Alcohol Dependence, Cannabis Dependence - Physical Exam Results Vital Signs: Vital Signs Temperature 97.9 F 09/20/18 07:15 Pulse Rate 80 09/20/18 07:15 Respiratory Rate 18 09/20/18 07:15 Blood Pressure 131/83 09/20/18 07:15 O2 Sat by Pulse Oximetry (%) - Treatment Hospital Course: Detox Protocol Followed, Detoxed Safely, Responded well, Discharged Condition Good, Rehab Referral Accepted - Medication Discharge Medications: Ambulatory Orders Albuterol 0.083% Nebulizer Stephanie [Ventolin 0.083% Nebulizer Soln -] 1 neb NEB Q6H 09/18/18 Cyclobenzaprine HCl 10 mg PO DAILY 09/18/18 Ibuprofen 800 mg PO TID 09/18/18 Vitamin B Complex 2 each PO DAILY 09/18/18 - Diagnosis (1) Sciatica, left side Current Visit: Yes Status: Chronic (2) Alcohol dependence with uncomplicated withdrawal Current Visit: Yes Status: Chronic (3) Anxiety Current Visit: Yes Status: Chronic (4) Cannabis dependence Current Visit: Yes Status: Chronic (5) Knee injuries Current Visit: No Status: Chronic Qualifiers: Encounter type: subsequent encounter Laterality: unspecified laterality Qualified Code(s): S89.90XD - Unspecified injury of unspecified lower leg, subsequent encounter (6) Nicotine dependence Current Visit: Yes Status: Acute Qualifiers: Nicotine product type: cigarettes Substance use status: uncomplicated Qualified Code(s): F17.210 - Nicotine dependence, cigarettes, uncomplicated (7) Substance induced mood disorder Current Visit: No Status: Acute (8) Arthritis Current Visit: No Status: Chronic (9) COPD (chronic obstructive pulmonary disease) Current Visit: Yes Status: Chronic Qualifiers: COPD type: emphysema Emphysema type: unspecified Qualified Code(s): J43.9 - Emphysema, unspecified (10) Chronic back pain Current Visit: No Status: Chronic Qualifiers: Back pain location: back pain in unspecified location Back pain laterality : unspecified Qualified Code(s): M54.9 - Dorsalgia, unspecified; G89.29 - Other chronic pain (11) Cocaine dependence, uncomplicated Current Visit: No Status: Chronic (12) DJD (degenerative joint disease) Current Visit: No Status: Chronic Qualifiers: Osteoarthritis location: spine (13) PCP (phencyclidine) abuse Current Visit: Yes Status: Chronic (14) Use of cane as ambulatory aid Current Visit: Yes Status: Chronic (15) Anxiety and depression Current Visit: No Status: Suspected - AMA Did Patient Leave Against Medical Advice: No (referred to [facility] rehab)
[2018-09-20] MEDS: LIDOCAINE 5% TOPICAL PATCH TP SCH (10:51)
[2018-09-20] MEDS: PRENATAL VITAMINS W/ FOLIC ACID TABLET (FP) PO SCH (10:51)
[2018-09-20] MEDS: NICOTINE 21 MG/24 HOURS TOPICAL PATCH TD SCH (10:51)
--- NOTE | 2018-09-20 10:55 | PN ---
S Progress Note Note: pt will remain until tomorrow; pt will be p/u to go to [facility]
[2018-09-20] MEDS: METHOCARBAMOL 500 MG TABLET PO PRN (17:32)
[2018-09-20] MEDS: ALBUTEROL SO4 8 GM HFA INHALER IH PRN ×2 (17:33→22:27)
[2018-09-20] MEDS: diazePAM 5 MG TABLET PO PRN (17:33)
[2018-09-20] MEDS: ALBUTEROL SO4 2.5/IPRATROPIUM 0.5 INH SOL 3 ML VIAL.NEB. NEB PRN (17:34)
[2018-09-20] MEDS: MELATONIN 5 MG TABLETS PO PRN (22:25)
[2018-09-20] MEDS: THIAMINE HCL 100 MG TABLET (FP) PO SCH (22:25)
[2018-09-20] MEDS: LIDOCAINE PATCH REMOVAL MC SCH (22:26)
[2018-09-21] MEDS: METHOCARBAMOL 500 MG TABLET PO PRN (02:36)
[2018-09-21 07:32] VITALS: PULSE 84
[2018-09-21 09:27] VITALS: BP 124/73; TEMP 97.7
--- NOTE | 2018-09-21 09:28 | DS ---
[facility] Detox Discharge Summary Admission Date: 09/18/18 Discharge Date: 09/21/18 - History Present History: Alcohol Dependence, Cannabis Dependence, Cocaine Dependence, Pcp Dependence - Physical Exam Results Vital Signs: Vital Signs Temperature 97.7 F 09/21/18 09:26 Pulse Rate 84 09/21/18 09:26 Respiratory Rate 18 09/21/18 09:26 Blood Pressure 124/73 09/21/18 09:26 O2 Sat by Pulse Oximetry (%) - Treatment Hospital Course: Detox Protocol Followed, Detoxed Safely, Responded well, Discharged Condition Good, Rehab Referral Accepted - Medication Discharge Medications: Ambulatory Orders Albuterol 0.083% Nebulizer Stephanie [Ventolin 0.083% Nebulizer Soln -] 1 neb NEB Q6H 09/18/18 Cyclobenzaprine HCl 10 mg PO DAILY 09/18/18 Ibuprofen 800 mg PO TID 09/18/18 Vitamin B Complex 2 each PO DAILY 09/18/18 - Diagnosis (1) Sciatica, left side Current Visit: Yes Status: Chronic (2) Alcohol dependence with uncomplicated withdrawal Current Visit: Yes Status: Chronic (3) Anxiety Current Visit: Yes Status: Chronic (4) Cannabis dependence Current Visit: Yes Status: Chronic (5) Knee injuries Current Visit: No Status: Chronic Qualifiers: Encounter type: subsequent encounter Laterality: unspecified laterality Qualified Code(s): S89.90XD - Unspecified injury of unspecified lower leg, subsequent encounter (6) Nicotine dependence Current Visit: Yes Status: Acute Qualifiers: Nicotine product type: cigarettes Substance use status: uncomplicated Qualified Code(s): F17.210 - Nicotine dependence, cigarettes, uncomplicated (7) Substance induced mood disorder Current Visit: No Status: Acute (8) Arthritis Current Visit: No Status: Chronic (9) COPD (chronic obstructive pulmonary disease) Current Visit: Yes Status: Chronic Qualifiers: COPD type: emphysema Emphysema type: unspecified Qualified Code(s): J43.9 - Emphysema, unspecified (10) Chronic back pain Current Visit: No Status: Chronic Qualifiers: Back pain location: back pain in unspecified location Back pain laterality : unspecified Qualified Code(s): M54.9 - Dorsalgia, unspecified; G89.29 - Other chronic pain (11) Cocaine dependence, uncomplicated Current Visit: No Status: Chronic (12) DJD (degenerative joint disease) Current Visit: No Status: Chronic Qualifiers: Osteoarthritis location: spine (13) PCP (phencyclidine) abuse Current Visit: Yes Status: Chronic (14) Use of cane as ambulatory aid Current Visit: Yes Status: Chronic (15) Anxiety and depression Current Visit: No Status: Suspected - AMA Did Patient Leave Against Medical Advice: No (prefer to go home first then aftercare)
== END 2018-09-21 09:22 | disposition other institution (70) | DRG 774 ==
LOC: YASAS 09:08 → Y6N 12:00
PROVIDERS: ADMIT Surgery; ATTEND Surgery
PROC: HZ2ZZZZ Detoxification Services for Substance Abuse Treatment (ICD-10-PCS; principal; 2018-09-18)
DX: F10.230 Alcohol dependence with withdrawal, uncomplicated (principal); F14.20 Cocaine dependence, uncomplicated; F12.20 Cannabis dependence, uncomplicated; F16.10 Hallucinogen abuse, uncomplicated; F17.210 Nicotine dependence, cigarettes, uncomplicated; F19.24 Other psychoactive substance dependence with psychoactive substance-induced mood disorder; F32.9 Major depressive disorder, single episode, unspecified; F41.9 Anxiety disorder, unspecified; M10.9 Gout, unspecified; M54.32 Sciatica, left side; M54.89 Other dorsalgia; G89.29 Other chronic pain; R26.89 Other abnormalities of gait and mobility; Z99.89 Dependence on other enabling machines and devices
CPT/HCPCS: 36415; 80053; 81003; 85027; 86593; 94640

== ENCOUNTER 2019-04-06 22:53 | Inpatient (IN) | payer OTHER ==
[2019-04-06 23:22] VITALS: BMI 21.2
--- NOTE | 2019-04-07 03:18 | HP ---
CIWA Score Nausea/Vomitin-Mild Nausea/No Vomiting Muscle Tremors: 3 Anxiety: 2 Agitation: 3 Paroxysmal Sweats: 3 Orientation: 0-Oriented Tacttile Disturbances: 1-Very Mild Itch/Numbness Auditory Disturbances: 0-None Visual Disturbances: 0-None Headache: 2-Mild CIWA-Ar Total Score: 15 - Admission Criteria OASAS Guidelines: Admission for Medically Managed Detox: Requires at least one of the followin. CIWA greater than 12 2. Seizures within the past 24 hours 3. Delirium tremens within the past 24 hours 4. Hallucinations within the past 24 hours 5. Acute intervention needed for co occurring medical disorder 6. Acute intervention needed for co occurring psychiatric disorder 7. Severe withdrawal that cannot be handled at a lower level of care (continued vomiting, continued diarrhea, abnormal vital signs) requiring intravenous medication and/or fluids 8. Admitting History and Physical - Smoking History Smoking history: Current every day smoker Have you smoked in the past 12 months: Yes Aproximately how many cigarettes per day: 10 - Alcohol/Substance Use Hx Alcohol Use: Yes Admission ROS [facility] Chief Complaint: Alcohol withdrawal symptoms Allergies/Adverse Reactions: Allergies Allergy/AdvReac Type Severity Reaction Status Date / Time No Known Allergies Allergy Verified 04/06/19 23:05 History of Present Illness: 58 ears old male with a long history of alcohol dependence is seeking admission to detox. Patient has been in previous detoxification and reports insignificant period of sobriety. He has history of COPD, seizures, depression and pinched nerve. He denies suicidal ideation at this time Exam Limitations: No Limitations - Ebola screening Have you traveled outside of the country in the last 21 days: No (N) Have you had contact with anyone from an Ebola affected area: No Do you have a fever: No - Review of Systems Constitutional: Chills, Malaise, Night Sweats, Changes in sleep EENT: reports: No Symptoms Reported Respiratory: reports: No Symptoms reported Cardiac: reports: No Symptoms Reported GI: reports: Poor Appetite, Poor Fluid Intake, Vomiting, Abdominal cramping : reports: No Symptoms Reported Musculoskeletal: reports: Back Pain, Muscle Pain Integumentary: reports: Dryness, Flushing Neuro: reports: Tremors Endocrine: reports: No Symptoms Reported Hematology: reports: No Symptoms Reported Psychiatric: reports: No Sypmtoms Reported, Mood/Affect Appropiate, Orientated x3 Other Systems: Reviewed and Negative Patient History - Patient Medical History Hx Anemia: No Hx Asthma: No Hx Chronic Obstructive Pulmonary Disease (COPD): Yes (on albuterol inhaler) Hx Cancer: No Hx Cardiac Disorders: No Hx Congestive Heart Failure: No Hx Hypertension: No Hx Hypercholesterolemia: No Hx Pacemaker: No HX Cerebrovascular Accident: No Hx Seizures: Yes (last 2014) Hx Dementia: No Hx Diabetes: No Hx Gastrointestinal Disorders: No Hx Liver Disease: No Hx Genitourinary Disorders: No Hx Sexually Transmitted Disorders: No Hx Renal Disease (ESRD): No Hx Thyroid Disease: No Hx Human Immunodeficiency Virus (HIV): No (last 2017 negative) Hx Hepatitis C: No Hx Depression: Yes (NO TXMENT) Hx Suicide Attempt: No Hx Bipolar Disorder: No Hx Schizophrenia: No - Patient Surgical History Past Surgical History: Yes Hx Neurologic Surgery: No Hx Cataract Extraction: No Hx Cardiac Surgery: No Hx Lung Surgery: No Hx Breast Surgery: No Hx Breast Biopsy: No Hx Abdominal Surgery: No Hx Appendectomy: No Hx Cholecystectomy: No Hx Genitourinary Surgery: No Hx Section: No Hx Orthopedic Surgery: Yes (ARTHROSCOPIC SURGERY ON LEFT KNEE IN 09/2014) Anesthesia Reaction: No - PPD History Previous Implant?: Yes Documented Results: Negative w/o proof Implanted On Prior R Admission?: Yes Date: 09/20/18 Results: NEGATIVE 0 mm - Reproductive History Patient is a Female of Child Bearing Age (11 -55 yrs old): No (male) - Smoking Cessation Smoking history: Current every day smoker Have you smoked in the past 12 months: Yes Aproximately how many cigarettes per day: 10 Cigars Per Day: 0 Hx Chewing Tobacco Use: No Initiated information on smoking cessation: Yes 'Breaking Loose' booklet given: 04/07/19 - Substance & Tx. History Hx Alcohol Use: Yes Hx Substance Use: Yes Substance Use Type: Alcohol, Heroin, Marijuana Hx Substance Use Treatment: Yes - Substances abused Alcohol Substance route: Oral Frequency: Daily Amount used: 1-2pints of Rum and Vodka,6-7 of 40 Oz of beer Age of first use: 20 Date of last use: 04/05/19 Marijuana/Hashish Substance route: Smoking Frequency: 1-2 times per week Amount used: 2-3 dime bags Age of first use: 20 Date of last use: 04/05/19 Crack Substance route: Smoking Frequency: Daily Amount used: $200-300 Age of first use: 25 Date of last use: 04/05/19 Cocaine Substance route: Inhalation Frequency: 1-3 times last 30 days Amount used: whenever I could get it' Age of first use: 20 Date of last use: 04/05/19 Admission Physical Exam [facility] - Vital Signs Vital Signs: Vital Signs - 24 hr 04/06/19 23:12 Temperature 99.3 F Pulse Rate 94 H Respiratory 20 Rate Blood Pressure 122/61 - Physical General Appearance: Yes: Moderate Distress, Tremorous, Sweating, Anxious HEENTM: Yes: Within Normal Limits Respiratory: Yes: Lungs Clear, Normal Breath Sounds, No Respiratory Distress Neck: Yes: Within Normal Limits Breast: Yes: Breast Exam Deferred Cardiology: Yes: Regular Rhythm, Regular Rate Abdominal: Yes: Normal Bowel Sounds Genitourinary: Yes: Within Normal Limits Back: Yes: Normal Inspection Cleared for Admission [facility] - Detox or Rehab [facility] Level of Care: Medically Managed Claeared for Rehab Admission: No Breathalyzer - Breathalyzer Breathalyzer: 0 Urine Drug Screen - Test Device Lot number: [id number] Expiration date: 06/01/20 - Control Is test valid?: Yes - Results Drug screen NEGATIVE: No Urine drug screen results: TRISTIN-Cocaine Inpatient Rehab Admission - Rehab Decision to Admit Inpatient rehab admission?: No
[2019-04-07] MEDS ORDERED: MAGNESIUM HYDROX 2400MG/30ML ORAL SUSPENSION 30 ML CUP PO PRN (03:26)
[2019-04-07] MEDS ORDERED: MAGNESIUM CITRATE 300 ML BOTTLE PO PRN (03:26)
[2019-04-07] MEDS ORDERED: MENTHOL/PHENOL 1 EACH UD MM PRN (03:26)
[2019-04-07] MEDS ORDERED: NICOTINE POLACRILEX 2 MG GUM BUC PRN (03:26)
[2019-04-07] MEDS ORDERED: MAG HYDROX/AL HYDROX/SIMETH 30 ML UNIT-DOSE CUP PO PRN (03:26)
[2019-04-07] MEDS ORDERED: BISMUTH SUBSALICYLATE 524 MG/30 ML UD PO PRN (03:26)
[2019-04-07] MEDS ORDERED: MELATONIN 5 MG TABLETS PO PRN (03:26)
[2019-04-07] MEDS ORDERED: hydrOXYzine PAMOATE 25 MG CAPSULE (FP) PO PRN (03:26)
[2019-04-07] MEDS ORDERED: ACETAMINOPHEN 325 MG TABLET (FP) PO PRN ×2 (03:26)
[2019-04-07] MEDS: diazePAM 5 MG TABLET PO SCH ×3 (07:08→22:28)
[2019-04-07] MEDS: NICOTINE 14 MG/24 HOURS TOPICAL PATCH TD SCH (10:18)
[2019-04-07] MEDS: PRENATAL VITAMINS W/ FOLIC ACID TABLET (FP) PO SCH (10:18)
[2019-04-07] MEDS ORDERED: SODIUM CHLORIDE NASAL SPRAY 44 ML BOTTLE NS PRN (11:19)
[2019-04-07] MEDS: LORATADINE 10 MG TABLET PO SCH (11:56)
[2019-04-07] MEDS: ALBUTEROL SO4 2.5/IPRATROPIUM 0.5 INH SOL 3 ML VIAL.NEB. NEB PRN (13:21)
--- NOTE | 2019-04-07 15:58 | PN ---
S CIWA - CIWA Score Nausea/Vomitin Muscle Tremors: 3 Anxiety: 2 Agitation: 0-Normal Activity Paroxysmal Sweats: 3 Orientation: 0-Oriented Tacttile Disturbances: 1-Very Mild Itch/Numbness Auditory Disturbances: 1-Very Mild Visual Disturbances: 0-None Headache: 2-Mild CIWA-Ar Total Score: 15 BHS Progress Note (SOAP) Subjective: Tremors, Nausea, Anxious, Sweating Fatigue. Objective: PATIENT A & O X 3, OBSERVED AMBULATING ON DETOX UNIT UNASSISTED. IN NO ACUTE DISTRESS. 04/07/19 15:59 Vital Signs Temperature 99.1 F 04/07/19 13:39 Pulse Rate 99 H 04/07/19 13:39 Respiratory Rate 18 04/07/19 13:39 Blood Pressure 122/80 04/07/19 13:39 O2 Sat by Pulse Oximetry (%) RESULTS OF DETOX ADMISSION LABS PENDING. PATIENT HAD ELEVATED TEMP. OF 100.4 IN AM, LATER TEMP. ROSAURA T DOWN TO 99.1. PATIENT REPORTS THAT HE HAS RECENTLY BEEN EXPERIENCING NASAL CONGESTION, COUGH, AND SINUS PRESSURE. PATIENT REPORTS HISTORY OF C.O.P.D. 04/07/19 16:00 Assessment: 04/07/19 16:00 WITHDRAWAL SYMPTOMS. Plan: CONTINUE DETOX. INCREASE DAILY ORAL WATER INTAKE. OCEAN SPRAY SEA SALT NASAL SPRAY PRN FOR DRYNESS OF NASAL PASSAGES. CLARITIN ORALLY FOR SINUS CONGESTION/PRESSURE. DUONEB PRN FOR COUGHING.
[2019-04-07] MEDS: IBUPROFEN 400 MG TABLET (FP) PO PRN (18:08)
[2019-04-07] MEDS: diazePAM 5 MG TABLET PO PRN ×2 (18:08→22:28)
[2019-04-07] MEDS: THIAMINE HCL 100 MG TABLET (FP) PO SCH (22:28)
[2019-04-07] MEDS: METHOCARBAMOL 500 MG TABLET PO PRN (22:29)
[2019-04-07] MEDS: guaiFENesin 200 MG/10 ML 10 ML UNIT-DOSE CUPS PO PRN (22:30)
--- NOTE | 2019-04-07 23:26 | EKG ---
Test Reason : Blood Pressure : / mmHG Vent. Rate : 086 BPM Atrial Rate : 086 BPM P-R Int : 146 ms QRS Dur : 082 ms QT Int : 340 ms P-R-T Axes : 083 056 067 degrees QTc Int : 406 ms NORMAL SINUS RHYTHM NONSPECIFIC T WAVE ABNORMALITY ABNORMAL ECG WHEN COMPARED WITH ECG OF 29-DEC-2017 15:37, PREMATURE VENTRICULAR COMPLEXES ARE NO LONGER PRESENT Confirmed by LEONOR FARFAN, JUAN C ([id number]) on 04/07/2019 11:26:09 PM Referred By: Rob Addison Confirmed By:JUAN C GALVEZ MD
[2019-04-08] MEDS: diazePAM 5 MG TABLET PO SCH ×2 (06:55→19:32)
[2019-04-08 10:04] LABS: BILIRUBIN,TOTAL 0.4 mg/dL (0.2-1); BLOOD UREA NITROGEN 6.4 mg/dL (7-18); CALCIUM 8.9 mg/dL (8.5-10.1); CREATININE 0.9 mg/dL (0.55-1.3); POTASSIUM 4.1 mmol/L (3.5-5.1); TOT PROT 6.6 g/dl (6.4-8.2)
[2019-04-08 10:07] LABS: HEMATOCRIT 39.1 % (35.4-49); HEMOGLOBIN 12.9 GM/dL (11.7-16.9); MCH 29.1 pg (25.7-33.7); MEAN CELL VOLUME 88.1 fl (80-96); MEAN PLT VOLUME 7.5 fl (7.5-11.1); PLATELET COUNT 311 K/MM3 (134-434); RBC 4.43 M/mm3 (4.00-5.60); RDW 14.6 % (11.9-15.9)
[2019-04-08] MEDS: NICOTINE 14 MG/24 HOURS TOPICAL PATCH TD SCH (10:25)
[2019-04-08] MEDS: LORATADINE 10 MG TABLET PO SCH (10:26)
[2019-04-08] MEDS: PRENATAL VITAMINS W/ FOLIC ACID TABLET (FP) PO SCH (10:26)
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
--- NOTE | 2019-04-08 16:11 | PN ---
[facility] CIWA - CIWA Score Nausea/Vomitin-Mild Nausea/No Vomiting Muscle Tremors: 2 Anxiety: 3 Agitation: 2 Paroxysmal Sweats: 2 Orientation: 0-Oriented Tacttile Disturbances: 0-None Auditory Disturbances: 0-None Visual Disturbances: 0-None Headache: 0-None Present CIWA-Ar Total Score: 10 S Progress Note (SOAP) Subjective: Back pain, pain and numbness in left hand and left leg due to withdrawal, anxious. Patient requesting inpatient rehab. Patient stated if he's discharged tomorrow without inpatient rehab placement, he will return to using drugs. Patient requesting inpatient rehab at [facility] or [facility]. Objective: 04/08/19 16:10 Last Vital Signs Temp Pulse Resp BP Pulse Ox 97.1 F L 79 18 116/66 04/08/19 15:00 04/08/19 15:00 04/08/19 15:00 04/08/19 15:00 Laboratory Tests 04/08/19 04/08/19 04/08/19 07:50 07:50 07:50 WBC 6.0 RBC 4.43 Hgb 12.9 Hct 39.1 MCV 88.1 MCH 29.1 MCHC 33.0 RDW 14.6 Plt Count 311 D MPV 7.5 D Sodium 142 Potassium 4.1 Chloride 106 Carbon Dioxide 32 Anion Gap 4 L BUN 6.4 L Creatinine 0.9 Est GFR (CKD-EPI)AfAm 109.50 Est GFR (CKD-EPI)NonAf 94.48 Random Glucose 107 H Calcium 8.9 Total Bilirubin 0.4 AST 13 L ALT 16 Alkaline Phosphatase 94 Total Protein 6.6 Albumin 3.0 L RPR Titer Nonreactive Labs reviewed: albumin 3.0 (low) Assessment: 04/08/19 16:11 Withdrawal sxs Noted with hypoalbuminemia Plan: Continue detox Encouraged PO water intake Hypoalbuminemia, mild: encouraged diet
[2019-04-08] MEDS: IBUPROFEN 400 MG TABLET (FP) PO PRN (16:40)
[2019-04-08] MEDS: METHOCARBAMOL 500 MG TABLET PO PRN ×2 (16:41→22:49)
[2019-04-08] MEDS: ALBUTEROL SO4 2.5/IPRATROPIUM 0.5 INH SOL 3 ML VIAL.NEB. NEB PRN (16:42)
[2019-04-08] MEDS ORDERED: AZITHROMYCIN 250 MG TABLET PO ONE (19:21)
[2019-04-08] MEDS ORDERED: ALBUTEROL SO4 8 GM HFA INHALER IH PRN (19:28)
--- NOTE | 2019-04-08 19:28 | PN ---
[facility] Progress Note Note: called by nurse to evaluate patient who has t 102.2F,pulse ox 97% Vital Signs Temperature 102.2 F H 04/08/19 18:37 Pulse Rate 113 H 04/08/19 18:37 Respiratory Rate 18 04/08/19 18:37 Blood Pressure 126/74 04/08/19 18:37 O2 Sat by Pulse Oximetry (%) alert,oriented x 3 history of asthma,has been coughing with yellowish mucous for 7 days just recieved duoneb nebulizer heent normal lung mild expiratory wheezing dry lip and mucosa heart tachycardaia,s1s2,no murmur abdomnen no pain or tenderness no calf tenderness impression febrile acute bronchitis r/o pneumonia acute exacerbation of asthma dehydration treatment continue albuterol inhaler continue duoneb zithromax 500 mgs po now then 250 mgs po daily for 3 more days chest x ray in am r/o pneumonia repeat cbc,cmp in am encourage oral fluid
[2019-04-08] MEDS: guaiFENesin 200 MG/10 ML 10 ML UNIT-DOSE CUPS PO PRN (19:30)
[2019-04-08] MEDS: diazePAM 5 MG TABLET PO PRN (22:47)
[2019-04-08] MEDS: THIAMINE HCL 100 MG TABLET (FP) PO SCH (22:47)
[2019-04-09] MEDS ORDERED: diazePAM 5 MG TABLET PO ONE (06:00)
[2019-04-09] MEDS: diazePAM 5 MG TABLET PO SCH ×2 (06:03→17:23)
[2019-04-09] MEDS: IBUPROFEN 400 MG TABLET (FP) PO PRN (06:06)
[2019-04-09] MEDS: PRENATAL VITAMINS W/ FOLIC ACID TABLET (FP) PO SCH (10:24)
[2019-04-09] MEDS: NICOTINE 14 MG/24 HOURS TOPICAL PATCH TD SCH (10:24)
[2019-04-09] MEDS: AZITHROMYCIN 250 MG TABLET PO SCH (10:24)
[2019-04-09] MEDS: LORATADINE 10 MG TABLET PO SCH (10:24)
--- NOTE | 2019-04-09 12:29 | PN ---
S CIWA - CIWA Score Nausea/Vomitin-No Nausea/No Vomiting Muscle Tremors: 1-None Visible, but [place] Anxiety: 1-Mildly Anxious Agitation: 1-Slight > Activity Paroxysmal Sweats: No Perspiration Orientation: 0-Oriented Tacttile Disturbances: 1-Very Mild Itch/Numbness Auditory Disturbances: 0-None Visual Disturbances: 0-None Headache: 1-Very Mild CIWA-Ar Total Score: 5 BHS Progress Note (SOAP) Subjective: alert,irritable,anxious,interrupted sleep,pain in the body,no wheezing,afebrile Objective: 04/09/19 12:32 Vital Signs Temperature 99.0 F 04/09/19 11:32 Pulse Rate 95 H 04/09/19 11:32 Respiratory Rate 18 04/09/19 11:32 Blood Pressure 122/71 04/09/19 11:32 O2 Sat by Pulse Oximetry (%) 04/09/19 12:34 repeat cbc ,cmp pending Assessment: 04/09/19 12:34 withdrawal symptom Plan: continue detox valium regimen,continue aluterol inhaler and duoneb nebulizer, chest x ray at 14.00 r/o pneumonia, fluid,possible discharge in am
[2019-04-09 13:34] LABS: BASO % 0.8 % (0-2.0); EOS % 6.9 % (0-4.5); HEMATOCRIT 37.8 % (35.4-49); HEMOGLOBIN 12.5 GM/dL (11.7-16.9); MCH 29.2 pg (25.7-33.7); MEAN CELL VOLUME 88.4 fl (80-96); MONO % 17.7 % (3.8-10.2); NEUT % 55.6 % (42.8-82.8); PLATELET COUNT 334 K/MM3 (134-434); RBC 4.28 M/mm3 (4.00-5.60); RDW 14.5 % (11.9-15.9); WHITE BLOOD COUNT 6.2 K/mm3 (4.0-10.0)
[2019-04-09 13:35] LABS: ALBUMIN 2.8 g/dl (3.4-5.0); BILIRUBIN,TOTAL 0.2 mg/dL (0.2-1); CALCIUM 8.8 mg/dL (8.5-10.1); CREATININE 0.9 mg/dL (0.55-1.3); POTASSIUM 4.1 mmol/L (3.5-5.1); TOT PROT 6.7 g/dl (6.4-8.2)
[2019-04-09] MEDS: THIAMINE HCL 100 MG TABLET (FP) PO SCH (22:07)
[2019-04-09] MEDS: METHOCARBAMOL 500 MG TABLET PO PRN (22:08)
[2019-04-10] MEDS ORDERED: diazePAM 5 MG TABLET PO ONE (06:00)
--- NOTE | 2019-04-10 08:59 | DS ---
[facility] Detox Discharge Summary Admission Date: 04/07/19 Discharge Date: 04/10/19 - History Present History: Alcohol Dependence, Cannabis Dependence, Cocaine Dependence, Pcp Dependence - Physical Exam Results Vital Signs: Vital Signs Temperature 98.4 F 04/10/19 06:00 Pulse Rate 85 04/10/19 06:00 Respiratory Rate 18 04/10/19 06:00 Blood Pressure 140/74 04/10/19 06:00 O2 Sat by Pulse Oximetry (%) Pertinent Admission Physical Exam Findings: pt arrived in withdrawals Vital Signs Temperature 98.4 F 04/10/19 06:00 Pulse Rate 85 04/10/19 06:00 Respiratory Rate 18 04/10/19 06:00 Blood Pressure 140/74 04/10/19 06:00 O2 Sat by Pulse Oximetry (%) Laboratory Tests 04/08/19 04/08/19 04/08/19 07:50 07:50 07:50 WBC 6.0 RBC 4.43 Hgb 12.9 Hct 39.1 MCV 88.1 MCH 29.1 MCHC 33.0 RDW 14.6 Plt Count 311 D MPV 7.5 D Absolute Neuts (auto) Neutrophils % Lymphocytes % Monocytes % Eosinophils % Basophils % Nucleated RBC % Sodium 142 Potassium 4.1 Chloride 106 Carbon Dioxide 32 Anion Gap 4 L BUN 6.4 L Creatinine 0.9 Est GFR (CKD-EPI)AfAm 109.50 Est GFR (CKD-EPI)NonAf 94.48 Random Glucose 107 H Calcium 8.9 Total Bilirubin 0.4 AST 13 L ALT 16 Alkaline Phosphatase 94 Total Protein 6.6 Albumin 3.0 L RPR Titer Nonreactive 04/09/19 04/09/19 08:10 08:10 WBC 6.2 RBC 4.28 Hgb 12.5 Hct 37.8 MCV 88.4 MCH 29.2 MCHC 33.0 RDW 14.5 Plt Count 334 MPV 8.0 Absolute Neuts (auto) 3.4 Neutrophils % 55.6 Lymphocytes % 19.0 Monocytes % 17.7 H Eosinophils % 6.9 H Basophils % 0.8 Nucleated RBC % 0 Sodium 140 Potassium 4.1 Chloride 106 Carbon Dioxide 26 Anion Gap 8 BUN 13.0 Creatinine 0.9 Est GFR (CKD-EPI)AfAm 109.50 Est GFR (CKD-EPI)NonAf 94.48 Random Glucose 115 H Calcium 8.8 Total Bilirubin 0.2 AST 25 ALT 23 Alkaline Phosphatase 113 Total Protein 6.7 Albumin 2.8 L RPR Titer report of chest x-ray pending aaox3 ambulating no acute distress - Treatment Hospital Course: Detox Protocol Followed, Detoxed Safely, Responded well, Discharged Condition Good, Rehab Referral Accepted - Medication Discharge Medications: Ambulatory Orders Cyclobenzaprine HCl 10 mg PO DAILY 09/18/18 Ibuprofen 800 mg PO TID 09/18/18 Vitamin B Complex 2 each PO DAILY 09/18/18 Albuterol Sulfate Inhaler - [Ventolin HFA Inhaler -] 2 inhaler PO Q4HWA PRN 10/18 - Diagnosis (1) Cocaine use disorder Current Visit: Yes Status: Acute (2) Alcohol dependence with uncomplicated withdrawal Current Visit: Yes Status: Chronic (3) Nicotine dependence Current Visit: Yes Status: Chronic Qualifiers: Nicotine product type: cigarettes Substance use status: uncomplicated Qualified Code(s): F17.210 - Nicotine dependence, cigarettes, uncomplicated (4) Anxiety Current Visit: No Status: Chronic (5) Arthritis Current Visit: No Status: Chronic (6) COPD (chronic obstructive pulmonary disease) Current Visit: No Status: Chronic Qualifiers: COPD type: emphysema Emphysema type: unspecified Qualified Code(s): J43.9 - Emphysema, unspecified (7) Cannabis dependence Current Visit: No Status: Chronic (8) Chronic back pain Current Visit: Yes Status: Chronic Qualifiers: Back pain location: back pain in unspecified location Back pain laterality : unspecified Qualified Code(s): M54.9 - Dorsalgia, unspecified; G89.29 - Other chronic pain (9) Cocaine dependence, uncomplicated Current Visit: No Status: Chronic (10) DJD (degenerative joint disease) Current Visit: No Status: Chronic Qualifiers: Osteoarthritis location: spine (11) Knee injuries Current Visit: No Status: Chronic Qualifiers: Encounter type: subsequent encounter Laterality: unspecified laterality Qualified Code(s): S89.90XD - Unspecified injury of unspecified lower leg, subsequent encounter (12) PCP (phencyclidine) abuse Current Visit: No Status: Chronic (13) Sciatica, left side Current Visit: No Status: Chronic (14) Substance induced mood disorder Current Visit: No Status: Chronic (15) Use of cane as ambulatory aid Current Visit: No Status: Chronic (16) Anxiety and depression Current Visit: No Status: Suspected - AMA Did Patient Leave Against Medical Advice: No
[2019-04-10 09:19] VITALS: BP 136/78; PULSE 91; TEMP 98
[2019-04-10] MEDS: AZITHROMYCIN 250 MG TABLET PO SCH (10:29)
[2019-04-10] MEDS: PRENATAL VITAMINS W/ FOLIC ACID TABLET (FP) PO SCH (10:29)
[2019-04-10] MEDS: LORATADINE 10 MG TABLET PO SCH (10:29)
[2019-04-10] MEDS: NICOTINE 14 MG/24 HOURS TOPICAL PATCH TD SCH (11:05)
== END 2019-04-10 12:02 | disposition other institution (70) | DRG 774 ==
LOC: YASAS 22:53 → Y6N 04-07 03:16
PROVIDERS: ADMIT Allergy & Immunology; ATTEND Allergy & Immunology
PROC: HZ2ZZZZ Detoxification Services for Substance Abuse Treatment (ICD-10-PCS; principal; 2019-04-07)
DX: F10.230 Alcohol dependence with withdrawal, uncomplicated (principal); F14.20 Cocaine dependence, uncomplicated; F16.20 Hallucinogen dependence, uncomplicated; F12.20 Cannabis dependence, uncomplicated; F17.210 Nicotine dependence, cigarettes, uncomplicated; E88.09 Other disorders of plasma-protein metabolism, not elsewhere classified; J43.9 Emphysema, unspecified; J45.901 Unspecified asthma with (acute) exacerbation; J20.9 Acute bronchitis, unspecified; M47.9 Spondylosis, unspecified; M12.9 Arthropathy, unspecified; M54.5 Low back pain; G89.29 Other chronic pain; M54.32 Sciatica, left side; Z86.69 Personal history of other diseases of the nervous system and sense organs; Z99.89 Dependence on other enabling machines and devices
CPT/HCPCS: 36415; 71046-TC-FY; 80053; 85025; 85027; 86593; 93005; 93010; 94640

== ENCOUNTER 2021-09-05 15:05 | Inpatient (IN) | payer OTHER ==
[2021-09-05 16:01] VITALS: BMI 23.0
[2021-09-05] MEDS ORDERED: ONDANSETRON *ODT* 4 MG TABLET SL PRN (22:03)
[2021-09-05] MEDS ORDERED: DICYCLOMINE HCL 10 MG CAPSULE PO PRN (22:03)
[2021-09-05] MEDS ORDERED: NICOTINE 10 MG CARTRIDGE (INHALER) IH PRN (22:03)
[2021-09-05] MEDS ORDERED: MAGNESIUM HYDROX 2400MG/30ML ORAL SUSPENSION 30 ML CUP PO PRN (22:03)
[2021-09-05] MEDS ORDERED: MAG HYDROX/AL HYDROX/SIMETH 30 ML UNIT-DOSE CUP PO PRN (22:03)
[2021-09-05] MEDS ORDERED: LOPERAMIDE HCL 2 MG CAPSULE PO PRN (22:03)
[2021-09-05] MEDS ORDERED: BISMUTH SUBSALICYLATE 524 MG/30 ML PO PRN (22:03)
[2021-09-05] MEDS ORDERED: MAGNESIUM CITRATE 300 ML BOTTLE PO PRN (22:03)
[2021-09-05] MEDS ORDERED: ACETAMINOPHEN 325 MG TABLET (FP) PO PRN ×2 (22:03)
[2021-09-05] MEDS ORDERED: BENZOCAINE/MENTHOL (CHLORASEPTIC ) LOZENGE MM PRN (22:03)
[2021-09-05] MEDS ORDERED: ALBUTEROL SO4 HFA INHALER IH PRN (22:06)
[2021-09-05] MEDS ORDERED: ALBUTEROL SO4 2.5/IPRATROPIUM 0.5 INH SOL 3 ML VIAL.NEB. NEB ONE (22:14)
[2021-09-06] MEDS: IBUPROFEN 400 MG TABLET (FP) PO PRN ×2 (07:07→17:50)
[2021-09-06] MEDS: METHOCARBAMOL 500 MG TABLET PO PRN ×2 (07:07→17:50)
[2021-09-06] MEDS: PRENATAL VITAMINS W/ FOLIC ACID TABLET (FP) PO SCH (10:32)
[2021-09-06] MEDS: NICOTINE 14 MG/24 HOURS TOPICAL PATCH TD SCH (10:35)
[2021-09-06] MEDS: hydrOXYzine PAMOATE 25 MG CAPSULE (FP) PO PRN (17:50)
[2021-09-06] MEDS ORDERED: THIAMINE HCL 100 MG TABLET (FP) PO SCH (22:00)
[2021-09-06] MEDS ORDERED: MELATONIN 5 MG TABLETS PO SCH (22:00)
[2021-09-07] MEDS ORDERED: SERTRALINE HCL 25 MG TABLET (FP) PO SCH (10:00)
[2021-09-07] MEDS: PRENATAL VITAMINS W/ FOLIC ACID TABLET (FP) PO SCH (10:25)
[2021-09-07] MEDS: NICOTINE 14 MG/24 HOURS TOPICAL PATCH TD SCH (10:26)
[2021-09-07] MEDS: hydrOXYzine PAMOATE 25 MG CAPSULE (FP) PO PRN (10:26)
[2021-09-07 11:08] LABS: HEMATOCRIT 37.9 % (35.4-49); HEMOGLOBIN 12.4 GM/dL (11.7-16.9); MCH 29.7 pg (25.7-33.7); MCHC 32.9 g/dl (32.0-35.9); MEAN CELL VOLUME 90.3 fl (80-96); MEAN PLT VOLUME 7.6 fl (7.5-11.1); PLATELET COUNT 347 10^3/uL (134-434); RBC 4.19 M/mm3 (4.00-5.60); RDW 14.1 % (11.9-15.9)
[2021-09-07 11:12] LABS: BLOOD UREA NITROGEN 11.7 mg/dL (7-18); CALCIUM 8.9 mg/dL (8.5-10.1)
[2021-09-07 11:13] LABS: CREATININE 0.9 mg/dL (0.55-1.3)
[2021-09-07 11:15] LABS: BILIRUBIN,TOTAL 0.2 mg/dL (0.2-1); TOT PROT 6.7 g/dl (6.4-8.2)
[2021-09-07] MEDS ORDERED: amLODIPine BESYLATE 5 MG TABLET (FP) PO ONE (11:30)
[2021-09-07 13:41] VITALS: BP 150/84; PULSE 80; TEMP 97.8
[2021-09-08 16:17] LABS: SARS-CoV-2 NAA Not Detected (Not Detected)
== END 2021-09-07 13:55 | disposition other institution (70) | DRG 774 ==
LOC: YASAS 15:05 → Y6N 23:11 → UNDOADMIN 23:11
PROVIDERS: ADMIT Allergy & Immunology; ATTEND Allergy & Immunology
PROC: HZ2ZZZZ Detoxification Services for Substance Abuse Treatment (ICD-10-PCS; principal; 2021-09-05)
DX: F10.230 Alcohol dependence with withdrawal, uncomplicated (principal); F14.20 Cocaine dependence, uncomplicated; F16.10 Hallucinogen abuse, uncomplicated; F12.20 Cannabis dependence, uncomplicated; F17.213 Nicotine dependence, cigarettes, with withdrawal; F34.1 Dysthymic disorder; F43.10 Post-traumatic stress disorder, unspecified; F41.8 Other specified anxiety disorders; F32.A Depression, unspecified; G47.00 Insomnia, unspecified; J43.9 Emphysema, unspecified; E78.5 Hyperlipidemia, unspecified; Z86.69 Personal history of other diseases of the nervous system and sense organs; Z99.89 Dependence on other enabling machines and devices
CPT/HCPCS: 36415; 80053; 85027; 86780; 93005; 93010; C9803-CS; U0003; U0005

== ENCOUNTER 2022-11-03 02:22 | Inpatient (IN) | payer BC, OTHER ==
[2022-11-03 02:47] VITALS: BMI 19.1
[2022-11-03] MEDS ORDERED: DICYCLOMINE HCL 10 MG CAPSULE PO PRN (03:20)
[2022-11-03] MEDS ORDERED: MAGNESIUM HYDROX 2400MG/30ML ORAL SUSPENSION 30 ML CUP PO PRN (03:20)
[2022-11-03] MEDS ORDERED: NICOTINE POLACRILEX 2 MG GUM BUC PRN (03:20)
[2022-11-03] MEDS ORDERED: MAG HYDROX/AL HYDROX/SIMETH 30 ML UNIT-DOSE CUP PO PRN (03:20)
[2022-11-03] MEDS ORDERED: guaiFENesin 600 MG TABLET.ER (FP) PO PRN (03:20)
[2022-11-03] MEDS ORDERED: ONDANSETRON *ODT* 4 MG TABLET SL PRN (03:20)
[2022-11-03] MEDS ORDERED: NALOXONE HCL 0.4 MG/ML VIAL IM PRN (03:20)
[2022-11-03] MEDS ORDERED: IBUPROFEN 400 MG TABLET (FP) PO PRN (03:20)
[2022-11-03] MEDS ORDERED: POLYETHYLENE GLYCOL (HEALTHYLAX) 3350 17 GM PACKET PO PRN (03:20)
[2022-11-03] MEDS ORDERED: BENZOCAINE/MENTHOL (CHLORASEPTIC ) LOZENGE MM PRN (03:20)
[2022-11-03] MEDS ORDERED: NALOXONE HCL (KLOXXADO) 8 MG SPRAY NS PRN (03:20)
[2022-11-03] MEDS ORDERED: BENZONATATE 200 MG CAPSULE PO PRN (03:20)
[2022-11-03] MEDS ORDERED: P-EPHED 60MG/TRIPROLIDI 2.5MG TABLET PO PRN (03:20)
[2022-11-03] MEDS ORDERED: BISMUTH SUBSALICYLATE 524 MG/30 ML PO PRN (03:20)
[2022-11-03] MEDS ORDERED: LOPERAMIDE HCL 2 MG CAPSULE PO PRN (03:20)
[2022-11-03] MEDS ORDERED: diazePAM 5 MG TABLET PO PRN ×2 (03:22→09:54)
[2022-11-03] MEDS: hydrOXYzine PAMOATE 25 MG CAPSULE (FP) PO PRN ×2 (04:14→22:58)
[2022-11-03] MEDS: METHOCARBAMOL 500 MG TABLET PO PRN ×3 (04:14→17:47)
[2022-11-03] MEDS: PRENATAL VITAMINS W/ FOLIC ACID TABLET (FP) PO SCH (10:43)
[2022-11-03] MEDS: diazePAM 5 MG TABLET PO SCH ×3 (10:43→22:57)
[2022-11-03] MEDS ORDERED: ALBUTEROL SO4 HFA INHALER IH PRN (10:47)
[2022-11-03] MEDS ORDERED: PNEUMOC 20-VAL CONJ-DIP CRM/PF 0.5 ML SYRINGE IM ONE (12:00)
[2022-11-03] MEDS: FLUTICASONE/UMECLIDIN/VILANTER(100-62.5-25 TRELEGY ELLIPTA) INAHLER IH SCH (12:16)
[2022-11-03 13:05] LABS: HIV INTERPRETATION NEGATIVE (NEGATIVE)
[2022-11-03] MEDS: ACETAMINOPHEN 325 MG TABLET (FP) PO PRN (17:47)
[2022-11-03] MEDS: THIAMINE HCL 100 MG TABLET (FP) PO SCH (22:56)
[2022-11-03] MEDS: MELATONIN 5 MG TABLETS PO SCH (22:56)
[2022-11-04] MEDS: IBUPROFEN 600 MG TABLET (FP) PO PRN (06:02)
[2022-11-04] MEDS: METHOCARBAMOL 500 MG TABLET PO PRN ×2 (06:02→22:20)
[2022-11-04] MEDS: diazePAM 5 MG TABLET PO SCH ×4 (06:03→22:20)
[2022-11-04] MEDS: PRENATAL VITAMINS W/ FOLIC ACID TABLET (FP) PO SCH (10:46)
[2022-11-04] MEDS: FLUTICASONE/UMECLIDIN/VILANTER(100-62.5-25 TRELEGY ELLIPTA) INAHLER IH SCH (10:47)
[2022-11-04] MEDS: SERTRALINE HCL 50 MG TABLET (FP) PO SCH (10:47)
[2022-11-04] MEDS: ACETAMINOPHEN 325 MG TABLET (FP) PO PRN (10:48)
[2022-11-04 12:38] LABS: POTASSIUM 4.3 mmol/L (3.5-5.1)
[2022-11-04 12:40] LABS: HEMATOCRIT 35.3 % (35.4-49); HEMOGLOBIN 11.8 GM/dL (11.7-16.9); MCH 28.5 pg (25.7-33.7); MCHC 33.3 g/dl (32.0-35.9); MEAN CELL VOLUME 85.6 fl (80-96); MEAN PLT VOLUME 7.7 fl (7.5-11.1); PLATELET COUNT 296 10^3/uL (134-434); RBC 4.13 M/mm3 (4.00-5.60); RDW 14.2 % (11.9-15.9); WHITE BLOOD COUNT 3.8 K/mm3 (4.0-10.0)
[2022-11-04 12:42] LABS: ALBUMIN 3.2 g/dl (3.4-5.0); BLOOD UREA NITROGEN 20.2 mg/dL (7-18); CALCIUM 9.3 mg/dL (8.5-10.1)
[2022-11-04 12:45] LABS: CREATININE 1.1 mg/dL (0.55-1.3)
[2022-11-04 12:47] LABS: BILIRUBIN,TOTAL 0.5 mg/dL (0.2-1); TOT PROT 7.1 g/dl (6.4-8.2)
[2022-11-04] MEDS: MELATONIN 5 MG TABLETS PO SCH (22:20)
[2022-11-04] MEDS: THIAMINE HCL 100 MG TABLET (FP) PO SCH (22:20)
[2022-11-05] MEDS: diazePAM 5 MG TABLET PO SCH ×3 (05:35→22:12)
[2022-11-05] MEDS: SERTRALINE HCL 50 MG TABLET (FP) PO SCH (10:30)
[2022-11-05] MEDS: PRENATAL VITAMINS W/ FOLIC ACID TABLET (FP) PO SCH (10:30)
[2022-11-05] MEDS: FLUTICASONE/UMECLIDIN/VILANTER(100-62.5-25 TRELEGY ELLIPTA) INAHLER IH SCH (10:30)
[2022-11-05] MEDS ORDERED: PNEUMOC 20-VAL CONJ-DIP CRM/PF 0.5 ML SYRINGE IM ONE (12:00)
[2022-11-05] MEDS: hydrOXYzine PAMOATE 25 MG CAPSULE (FP) PO PRN (19:06)
[2022-11-05] MEDS: METHOCARBAMOL 500 MG TABLET PO PRN (22:11)
[2022-11-05] MEDS: THIAMINE HCL 100 MG TABLET (FP) PO SCH (22:11)
[2022-11-05] MEDS: MELATONIN 5 MG TABLETS PO SCH (22:11)
[2022-11-06] MEDS: diazePAM 5 MG TABLET PO SCH ×2 (05:53→17:35)
[2022-11-06] MEDS: PRENATAL VITAMINS W/ FOLIC ACID TABLET (FP) PO SCH (10:36)
[2022-11-06] MEDS: SERTRALINE HCL 50 MG TABLET (FP) PO SCH (10:36)
[2022-11-06] MEDS: FLUTICASONE/UMECLIDIN/VILANTER(100-62.5-25 TRELEGY ELLIPTA) INAHLER IH SCH (10:36)
[2022-11-06] MEDS ORDERED: cloNIDine HCL 0.1 MG TABLET PO PRN (14:56)
[2022-11-06] MEDS: METHOCARBAMOL 500 MG TABLET PO PRN (19:26)
[2022-11-06] MEDS: IBUPROFEN 600 MG TABLET (FP) PO PRN (19:26)
[2022-11-06] MEDS: THIAMINE HCL 100 MG TABLET (FP) PO SCH (22:29)
[2022-11-06] MEDS: MELATONIN 5 MG TABLETS PO SCH (22:29)
[2022-11-07] MEDS ORDERED: diazePAM 5 MG TABLET PO ONE (06:00)
[2022-11-07] MEDS: SERTRALINE HCL 50 MG TABLET (FP) PO SCH (09:19)
[2022-11-07] MEDS: PRENATAL VITAMINS W/ FOLIC ACID TABLET (FP) PO SCH (09:19)
[2022-11-07] MEDS: FLUTICASONE/UMECLIDIN/VILANTER(100-62.5-25 TRELEGY ELLIPTA) INAHLER IH SCH (09:20)
[2022-11-07] MEDS: MELATONIN 5 MG TABLETS PO SCH (21:58)
[2022-11-07] MEDS: THIAMINE HCL 100 MG TABLET (FP) PO SCH (21:59)
[2022-11-07] MEDS: METHOCARBAMOL 500 MG TABLET PO PRN (22:00)
[2022-11-08] MEDS: SERTRALINE HCL 50 MG TABLET (FP) PO SCH (09:44)
[2022-11-08] MEDS: FLUTICASONE/UMECLIDIN/VILANTER(100-62.5-25 TRELEGY ELLIPTA) INAHLER IH SCH (09:44)
[2022-11-08] MEDS: PRENATAL VITAMINS W/ FOLIC ACID TABLET (FP) PO SCH (09:44)
[2022-11-08 13:53] VITALS: BP 134/80; PULSE 95; RESP 19; TEMP 97.3
== END 2022-11-08 15:10 | disposition other institution (70) | DRG 897 ==
LOC: YASAS 02:22 → Y3N 03:53
PROVIDERS: ADMIT Allergy & Immunology; ATTEND Surgery
PROC: HZ2ZZZZ Detoxification Services for Substance Abuse Treatment (ICD-10-PCS; principal; 2022-11-03)
DX: F10.230 Alcohol dependence with withdrawal, uncomplicated (principal); F14.20 Cocaine dependence, uncomplicated; F11.20 Opioid dependence, uncomplicated; F12.20 Cannabis dependence, uncomplicated; F17.210 Nicotine dependence, cigarettes, uncomplicated; F19.24 Other psychoactive substance dependence with psychoactive substance-induced mood disorder; J44.9 Chronic obstructive pulmonary disease, unspecified; M17.0 Bilateral primary osteoarthritis of knee; M54.50 Low back pain, unspecified; G89.29 Other chronic pain; Z86.59 Personal history of other mental and behavioral disorders
CPT/HCPCS: 36415; 71046-TC-FY; 80053; 85027; 86780; 87389; 87635; 87811; 90677

== ENCOUNTER 2023-05-02 10:02 | Emergency (ER) | payer OTHER ==
[2023-05-02 10:17] VITALS: BMI 22.4
[2023-05-02] MEDS ORDERED: KETOROLAC TROMETHAMINE 30 MG/1 ML VIAL IM ONE (11:58)
[2023-05-02] MEDS ORDERED: ACETAMINOPHEN 325 MG TABLET (FP) PO ONE (12:28)
[2023-05-02] MEDS ORDERED: ACETAMINOPHEN 500 MG TABLET (FP) ONE (14:09)
[2023-05-02] MEDS ORDERED: KETOROLAC TROMETHAMINE 30 MG/1 ML VIAL ONE (14:09)
[2023-05-02 18:17] LABS: EPI CELLS 3 /uL (0-25.1); HYALINE CASTS 0 /uL (0-3.1); URINE APPEARANCE CLEAR; URINE BACTERIA 2 /uL (0-1359); URINE BILIRUBIN NEGATIVE (NEGATIVE); URINE COLOR YELLOW; URINE GLUCOSE (UA) NEGATIVE (NEGATIVE); URINE KETONE TRACE (NEGATIVE); URINE LEUK ESTERASE NEGATIVE (NEGATIVE); URINE NITRITE NEGATIVE (NEGATIVE); URINE PROTEIN TRACE (NEGATIVE); URINE RBC 53 /uL (0-23.9); URINE WBC 2 /uL (0-25.8)
[2023-05-02 18:49] LABS: BASO % 0.7 % (0-2.0); EOS % 2.2 % (0-4.5); HEMATOCRIT 39.7 % (35.4-49); HEMOGLOBIN 12.9 GM/dL (11.7-16.9); LYMPH % 15.8 % (8-40); MCH 27.9 pg (25.7-33.7); MCHC 32.4 g/dl (32.0-35.9); MEAN CELL VOLUME 85.8 fl (80-96); MEAN PLT VOLUME 6.5 fl (7.5-11.1); MONO % 9.4 % (3.8-10.2); NEUT % 71.9 % (42.8-82.8); PLATELET COUNT 457 10^3/uL (134-434); RBC 4.63 M/mm3 (4.00-5.60); RDW 13.8 % (11.9-15.9); WHITE BLOOD COUNT 7.5 K/mm3 (4.0-10.0)
[2023-05-02 19:06] LABS: CHLORIDE 104 mmol/L (98-107); SODIUM 139 mmol/L (136-145)
[2023-05-02 19:08] LABS: ALBUMIN 3.3 g/dl (3.4-5.0); ANION GAP 9 mmol/L (4-13); BLOOD UREA NITROGEN 13.5 mg/dL (7-18); CO2 25 mmol/L (21-32); GLUCOSE,RANDOM 117 mg/dL (74-106); MAGNESIUM 1.8 mg/dL (1.8-2.4)
[2023-05-02 19:11] LABS: CREATININE 0.9 mg/dL (0.55-1.3); SGOT/AST 17 U/L (15-37); SGPT/ALT 14 U/L (13-61)
[2023-05-02 19:13] LABS: BILIRUBIN,TOTAL 0.8 mg/dL (0.2-1)
[2023-05-02 19:14] LABS: ALK PHOS 141 U/L (45-117)
[2023-05-03 07:45] VITALS: BP 165/75; PULSE 81; RESP 16; TEMP 98.4
[2023-05-03 13:16] LABS: COCAINE, UR POSITIVE (NEGATIVE); METHADONE, UR NEGATIVE (NEGATIVE); OPIATES, URI NEGATIVE (NEGATIVE); PHENCYCLIDINE,URINE NEGATIVE (NEGATIVE); URINE AMPHETAMINES NEGATIVE (NEGATIVE); URINE BARBITURATES NEGATIVE (NEGATIVE); URINE BENZODIAZEPINES NEGATIVE (NEGATIVE)
== END 2023-05-03 10:00 | disposition home or self-care (01) ==
LOC: JER 10:02
PROC: 3E0233Z Introduction of Anti-inflammatory into Muscle, Percutaneous Approach (ICD-10-PCS; principal; 2023-05-02)
DX: M54.40 Lumbago with sciatica, unspecified side (principal); F19.90 Other psychoactive substance use, unspecified, uncomplicated; G89.29 Other chronic pain; M25.552 Pain in left hip
CPT/HCPCS: 36415; 70450-TC; 80053; 80307; 81003; 83735; 85025; 87086; 99284-25

== ENCOUNTER 2023-05-27 17:52 | Emergency (ER) | payer OTHER ==
[2023-05-27 18:23] VITALS: TEMP 99.4; BMI 28.7
[2023-05-27] MEDS ORDERED: ACETAMINOPHEN 1000 MG/100 ML BAG IVPB ONE (19:34)
[2023-05-27] MEDS ORDERED: ACETAMINOPHEN INJECTION 100 ML IVPB ONE (19:35)
[2023-05-27 20:02] LABS: HEMATOCRIT 35.6 % (35.4-49); HEMOGLOBIN 11.9 GM/dL (11.7-16.9); MCHC 33.5 g/dl (32.0-35.9); MEAN CELL VOLUME 86.6 fl (80-96); MEAN PLT VOLUME 6.9 fl (7.5-11.1); PLATELET COUNT 346 10^3/uL (134-434); POTASSIUM 4.4 mmol/L (3.5-5.1); RBC 4.11 M/mm3 (4.00-5.60); RDW 14.6 % (11.9-15.9); WHITE BLOOD COUNT 8.8 K/mm3 (4.0-10.0)
[2023-05-27 20:04] LABS: ALBUMIN 3.2 g/dl (3.4-5.0); BLOOD UREA NITROGEN 24.9 mg/dL (7-18)
[2023-05-27 20:05] LABS: EPI CELLS 4 /uL (0-25.1); HYALINE CASTS 0 /uL (0-3.1); PH,URINE 5.5 (5.0-8.0); URINE APPEARANCE CLEAR; URINE BACTERIA 8 /uL (0-1359); URINE BILIRUBIN NEGATIVE (NEGATIVE); URINE COLOR YELLOW; URINE GLUCOSE (UA) NEGATIVE (NEGATIVE); URINE KETONE NEGATIVE (NEGATIVE); URINE LEUK ESTERASE NEGATIVE (NEGATIVE); URINE NITRITE NEGATIVE (NEGATIVE); URINE PROTEIN NEGATIVE (NEGATIVE); URINE RBC 32 /uL (0-23.9); URINE UROBILINOGEN 0.2 mg/dL (0.2-1.0); URINE WBC 7 /uL (0-25.8)
[2023-05-27 20:08] LABS: CREATININE 1.1 mg/dL (0.55-1.3); INR 1.05 (0.83-1.09); PROTHROMBIN TIME (PATIENT) 12.2 SEC (9.7-13.0)
[2023-05-27 20:09] LABS: BILIRUBIN,TOTAL 0.6 mg/dL (0.2-1); TOT PROT 7.3 g/dl (6.4-8.2)
[2023-05-27 20:11] LABS: ACTIVATED PTT 29.6 SECONDS (25.2-36.5)
[2023-05-27 20:28] LABS: ANISOCYTOSIS 1+; MACROCYTOSIS 0
[2023-05-27 20:52] LABS: PHENCYCLIDINE,URINE NEGATIVE (NEGATIVE); URINE AMPHETAMINES NEGATIVE (NEGATIVE); URINE BENZODIAZEPINES NEGATIVE (NEGATIVE)
[2023-05-27 20:53] LABS: OPIATES, URI NEGATIVE (NEGATIVE); URINE BARBITURATES NEGATIVE (NEGATIVE)
[2023-05-27 20:55] LABS: METHADONE, UR NEGATIVE (NEGATIVE)
[2023-05-27 21:02] LABS: COCAINE, UR POSITIVE (NEGATIVE)
[2023-05-27 22:47] VITALS: BP 121/65; PULSE 86; RESP 18
== END 2023-05-28 06:48 | disposition home or self-care (01) ==
LOC: JER 17:52
PROC: 3E033NZ Introduction of Analgesics, Hypnotics, Sedatives into Peripheral Vein, Percutaneous Approach (ICD-10-PCS; principal; 2023-05-27)
DX: R53.1 Weakness (principal); R53.83 Other fatigue; R19.7 Diarrhea, unspecified; M79.10 Myalgia, unspecified site; R05.9 Cough, unspecified; R63.0 Anorexia; Z20.822 Contact with and (suspected) exposure to COVID-19
CPT/HCPCS: 0241U-QW; 36415; 71046-TC-FY; 80053; 80307; 81003; 82962; 84484; 85025; 85610; 85730; 87086; 93005; 93010; 96374; 99285-25

== ENCOUNTER 2023-11-11 09:26 | Inpatient (IN) | payer OTHER ==
[2023-11-11 10:05] VITALS: BMI 22.7
[2023-11-11] MEDS ORDERED: BENZOCAINE/MENTHOL (CHLORASEPTIC ) LOZENGE MM PRN (10:21)
[2023-11-11] MEDS ORDERED: NICOTINE POLACRILEX 2 MG LOZENGE BC PRN (10:21)
[2023-11-11] MEDS ORDERED: LOPERAMIDE HCL 2 MG CAPSULE PO PRN (10:21)
[2023-11-11] MEDS ORDERED: NICOTINE POLACRILEX 2 MG GUM BUC PRN (10:21)
[2023-11-11] MEDS ORDERED: ACETAMINOPHEN 325 MG TABLET (FP) PO PRN (10:21)
[2023-11-11] MEDS ORDERED: BENZONATATE 200 MG CAPSULE PO PRN (10:21)
[2023-11-11] MEDS ORDERED: MAG HYDROX/AL HYDROX/SIMETH 30 ML UNIT-DOSE CUP PO PRN (10:21)
[2023-11-11] MEDS ORDERED: guaiFENesin 600 MG TABLET.ER (FP) PO PRN (10:21)
[2023-11-11] MEDS: FLUTICASONE/UMECLIDIN/VILANTER(100-62.5-25 TRELEGY ELLIPTA) INAHLER IH SCH (12:06)
[2023-11-11] MEDS: IBUPROFEN 600 MG TABLET (FP) PO PRN (14:49)
[2023-11-11] MEDS: THIAMINE 100 MG TABLET PO SCH (21:39)
[2023-11-11] MEDS: MELATONIN 5 MG TABLETS PO SCH (21:39)
[2023-11-11] MEDS: METHOCARBAMOL 500 MG TABLET PO PRN (21:40)
[2023-11-11] MEDS: METHYL SALICYLATE/MENTHOL 30 GM TUBE TP SCH (22:30)
[2023-11-11] MEDS: FAMOTIDINE 20 MG TABLET PO SCH (22:30)
[2023-11-12] MEDS: IBUPROFEN 400 MG TABLET (FP) PO PRN (06:33)
[2023-11-12 06:54] LABS: EPI CELLS 2 /uL (0-25.1); HYALINE CASTS 0 /uL (0-3.1); PH,URINE 6.5 (5.0-8.0); URINE APPEARANCE CLEAR; URINE BACTERIA 12 /uL (0-1359); URINE BILIRUBIN NEGATIVE (NEGATIVE); URINE COLOR YELLOW; URINE GLUCOSE (UA) NEGATIVE (NEGATIVE); URINE KETONE NEGATIVE (NEGATIVE); URINE LEUK ESTERASE NEGATIVE (NEGATIVE); URINE NITRITE NEGATIVE (NEGATIVE); URINE PROTEIN NEGATIVE (NEGATIVE); URINE RBC 39 /uL (0-23.9); URINE UROBILINOGEN 0.2 mg/dL (0.2-1.0); URINE WBC 3 /uL (0-25.8)
[2023-11-12] MEDS: PRENATAL VITAMINS W/ FOLIC ACID TABLET (FP) PO SCH (09:50)
[2023-11-12] MEDS: BACLOFEN 10 MG TABLET (FP) PO SCH (09:51)
[2023-11-12] MEDS: LIDOCAINE 5% TOPICAL PATCH TP SCH (11:08)
[2023-11-12] MEDS: buPROPion HCL 75 MG TABLET PO SCH (11:45)
[2023-11-12 13:17] LABS: HEMATOCRIT 36.1 % (35.4-49); HEMOGLOBIN 12.3 GM/dL (11.7-16.9); MCH 28.8 pg (25.7-33.7); MCHC 33.9 g/dl (32.0-35.9); MEAN CELL VOLUME 84.8 fl (80-96); MEAN PLT VOLUME 7.9 fl (7.5-11.1); PLATELET COUNT 299 10^3/uL (134-434); RBC 4.26 M/mm3 (4.00-5.60); RDW 14.2 % (11.9-15.9); WHITE BLOOD COUNT 4.2 K/mm3 (4.0-10.0)
[2023-11-12 13:21] LABS: POTASSIUM 4.1 mmol/L (3.5-5.1)
[2023-11-12 13:23] LABS: BLOOD UREA NITROGEN 18.5 mg/dL (7-18)
[2023-11-12 13:25] LABS: CALCIUM 9.1 mg/dL (8.5-10.1)
[2023-11-12 13:26] LABS: ALBUMIN 3.6 g/dl (3.4-5.0)
[2023-11-12 13:27] LABS: CREATININE 1.1 mg/dL (0.55-1.3)
[2023-11-12 13:28] LABS: BILIRUBIN,TOTAL 0.2 mg/dL (0.2-1); TOT PROT 7.5 g/dl (6.4-8.2)
[2023-11-12 13:59] LABS: SYPHILIS W/ RPR CONF NON-REACTIVE (NONREACTIVE)
[2023-11-12 14:29] LABS: HIV INTERPRETATION NEGATIVE (NEGATIVE)
[2023-11-12] MEDS: LIDOCAINE PATCH REMOVAL MC SCH (21:23)
[2023-11-17] MEDS: buPROPion HCL 75 MG TABLET PO SCH (19:29)
[2023-11-19] MEDS: FAMOTIDINE 20 MG TABLET PO SCH (06:09)
[2023-11-19] MEDS: PRENATAL VITAMINS W/ FOLIC ACID TABLET (FP) PO SCH (06:10)
[2023-11-19] MEDS: FLUTICASONE/UMECLIDIN/VILANTER(100-62.5-25 TRELEGY ELLIPTA) INAHLER IH SCH (06:10)
[2023-11-19] MEDS: ALBUTEROL SO4 HFA INHALER IH PRN (21:28)
[2023-11-20] MEDS: IBUPROFEN 400 MG TABLET (FP) PO PRN (10:16)
[2023-11-21] MEDS: MAGNESIUM HYDROX 2400MG/30ML ORAL SUSPENSION 30 ML CUP PO PRN (15:48)
[2023-11-22] MEDS ORDERED: IBUPROFEN 400 MG TABLET (FP) PO PRN (12:48)
[2023-11-22] MEDS ORDERED: ACETAMINOPHEN 325 MG TABLET (FP) PO PRN (12:48)
[2023-11-22] MEDS: POLYETHYLENE GLYCOL (HEALTHYLAX) 3350 17 GM PACKET PO PRN (13:19)
[2023-11-22] MEDS: DOCUSATE SODIUM 100 MG CAPSULE (FP) PO SCH (13:26)
[2023-11-22] MEDS: BACLOFEN 10 MG TABLET (FP) PO SCH (13:26)
[2023-11-22] MEDS: MIRTAZAPINE 15 MG TABLET (FP) PO SCH (21:05)
[2023-11-28] MEDS: ACETAMINOPHEN 325 MG TABLET (FP) PO SCH (12:10)
[2023-12-09 07:02] VITALS: RESP 18; TEMP 97.8
[2023-12-09 11:03] VITALS: BP 134/63; PULSE 93
== END 2023-12-09 10:03 | disposition home or self-care (01) | DRG 895 ==
LOC: YASAS 09:26 → Y5N 11:12
PROVIDERS: ADMIT Allergy & Immunology; ATTEND Psychiatry & Neurology Pain Medicine
PROC: HZ42ZZZ Group Counseling for Substance Abuse Treatment, Cognitive-Behavioral (ICD-10-PCS; principal; 2023-11-11)
DX: F10.20 Alcohol dependence, uncomplicated (principal); F14.20 Cocaine dependence, uncomplicated; Z59.01 Sheltered homelessness; F12.20 Cannabis dependence, uncomplicated; F17.210 Nicotine dependence, cigarettes, uncomplicated; F19.982 Other psychoactive substance use, unspecified with psychoactive substance-induced sleep disorder; F19.94 Other psychoactive substance use, unspecified with psychoactive substance-induced mood disorder; F32.A Depression, unspecified; F43.10 Post-traumatic stress disorder, unspecified; J44.9 Chronic obstructive pulmonary disease, unspecified; M54.59 Other low back pain; G89.29 Other chronic pain; K59.00 Constipation, unspecified; R26.2 Difficulty in walking, not elsewhere classified; Z99.89 Dependence on other enabling machines and devices; Z86.69 Personal history of other diseases of the nervous system and sense organs; Z56.0 Unemployment, unspecified
CPT/HCPCS: 36415; 80053; 80305; 80307; 81003; 85027; 86780; 86803; 87389; 87811; J0475

== ENCOUNTER 2025-02-11 02:47 | Emergency (ER) | payer OTHER ==
[2025-02-11 02:58] VITALS: TEMP 97.5; BMI 26.9
[2025-02-11 05:18] VITALS: RESP 16
[2025-02-11 09:40] VITALS: BP 167/79; PULSE 81
== END 2025-02-11 10:00 | disposition home or self-care (01) ==
LOC: JER 02:47
DX: F10.929 Alcohol use, unspecified with intoxication, unspecified (principal); M79.10 Myalgia, unspecified site
CPT/HCPCS: 99283-25